=== PATIENT | male | born 1960 | race Caucasian/White ===

== ENCOUNTER 2025-05-01 21:20 | Inpatient (IN) | payer BC, SELFPAY ==
[2025-05-01 18:03] VITALS: BP 168/101
--- NOTE | 2025-05-01 18:34 | ED.GENMED ---
History of Present Illness
General
Chief Complaint: Abdominal Symptoms
Time Seen by Provider: 05/01/25 18:34
History of Present Illness
History of Present Illness:
FOCUSED PAST MEDICAL HISTORY
- High blood pressure, hyperlipidemia, diabetes
REVIEW OF OLD RECORDS
- No old records available for review in [facility]
Note:
CHIEF COMPLAINT(S)
Abdominal pain due to suspected hernia.
HISTORY OF PRESENT ILLNESS
The patient is a 64-year-old male presenting with abdominal pain. The patient reports a history of an umbilical hernia since , which recently became more symptomatic a week ago after lifting a heavy air conditioner unit. This incident led to a
loss of control over the unit with subsequent increased discomfort in the abdominal area.
The patient describes the pain as moderate, rating it a 5 out of 10. Initially, there was vomiting, but this resolved, and currently, the patient experiences diarrhea which is unusual for him. He reports being constipated recently and has been using
polyethylene glycol (MiraLAX) for relief.
No episodes of fever were noted, although chills occurred initially. The patient did not have a firm or distended abdomen upon examination, nor was there any irreducible hernia or severe vomiting, which would typically raise concern for an
incarcerated bowel. The patient still has his appendix, and no acute tenderness was noted except mild discomfort in specific areas.
The patient reports following up with a surgeon, Dr. Moe, with an upcoming appointment in two days.
PLAN
- A computed tomography (CT) scan of the abdomen will be performed to evaluate the hernia and assess for possible bowel involvement.
- Consider administration of ketorolac (Toradol) for pain relief as it is a non-sedating anti-inflammatory and pain reliever.
- The patient will have blood work completed before the CT scan.
- Follow-up with surgeon Mr. Moe in two days as previously scheduled.
PHYSICAL EXAM
Abdomen: Soft, non-distended, minimal tenderness in the area of concern without rebound or guarding more so on the right side. No signs of acute distress. There is a palpable fat-containing hernia in the umbilical region which is soft and nontender
- General: Well appearing in no distress
- HEENT: Moist oral mucosa
- Cardiovascular: No murmurs, normal heart rate, regular rhythm, No chest wall tenderness
- Pulmonary: No respiratory distress, breath sounds are clear and equal
- Neurologic: Excellent strength all extremities, no coordination deficits
- Psychiatric: Appropriate mental status, normal insight and judgement
- Extremities: Nontender, no edema, moves all extremities equally
- Skin: No rash, no lesions
PROBLEM LIST
- Acute abdominal pain possibly due to umbilical hernia exacerbation.
DIFFERENTIAL DIAGNOSIS
The Differential Diagnosis includes, in no particular order and is not limited to:
1. Umbilical hernia with possible incarceration
2. Intestinal obstruction
3. Gastroenteritis
4. Appendicitis
5. Hernia with bowel involvement
6. Muscular strain
7. Colitis
8. Gallbladder disease
9. Constipation-related pain
10. Diverticulitis
RADIOLOGY
- CT abdomen pelvis obtained
LABS
- White count 23.6, transaminases elevated, lipase 790, potassium 3.0
UPDATE
-SUMMARY OF ENCOUNTER
The patient, a 64-year-old male, presented to the emergency department with abdominal pain. A CT scan revealed severe colitis with perforation and abscess. His white blood cell count is significantly elevated at 23.6. The patient reported his worst
pain occurred two weeks ago following the awkward movement of an air conditioner. Despite the abnormal findings on CT and high white blood cell count, his physical examination showed no significant tenderness on the left side, no rebound, and only
mild tenderness on the right side. The decision was made to admit the patient to the hospital for further management of severe colitis with perforation and abscess.
DISPOSITION
Admit to the hospital for severe colitis with perforation and abscess.
ASSESSMENT
Severe colitis with perforation and abscess.
EMERGENCY TREATMENTS ADMINISTERED
The patient was given a dose of medication (specific medication uncertain).
MANAGEMENT OF THE PATIENTS CARE WAS DISCUSSED WITH
The patients care was discussed with a hospitalist and Dr. Ish Kenny, who agreed to evaluate the patient in the emergency department.
INDEPENDENT REVIEW OF LABS AND INTERPRETATION OF TESTS
- My independent review of the Complete Blood Count (CBC) shows leukocytosis with a white blood cell count of 23.6.
PLAN
Admit to the hospital for management of severe colitis with perforation and abscess under the care of Dr. Ish Kenny.
MEDICAL DECISION MAKING
- Complexity of Data Reviewed: Chronic conditions affecting care include the history of an umbilical hernia. Differential Diagnosis includes:
1. Umbilical hernia with possible incarceration
2. Intestinal obstruction
3. Gastroenteritis
4. Appendicitis
5. Hernia with bowel involvement
6. Muscular strain
7. Colitis
8. Gallbladder disease
9. Constipation-related pain
10. Diverticulitis
- Data:
Category 1: The patients CT and CBC results were reviewed.
Category 3: Discussion of management with Dr. Ish Kenny and a hospitalist.
-Risk: Admission to the hospital was deemed necessary due to the complexity, risk, and abnormal findings consistent with severe colitis with perforation and abscess.
DIAGNOSIS
1. Severe colitis with perforation and abscess (ICD-10: K57.20)
2. Leukocytosis (ICD-10: D72.829)
Phy Exam
Physical Exam
Physical Exam:
See HPI
Course
Orders/Labs/Results
Orders:
Orders
05/01/25 18:42
CT Abd/pelvis W Iv Cont Urgent
Comment:
Reason For Exam: periumb and RLQ pain
0.9% Sodium Chloride 1000 ml [Nss] 1,000 ml IV BOLUS
Ketorolac [Toradol] 15 mg IV NOW STA
05/01/25 18:45
Complete Blood Count/With Diff Urgent
Comprehensive Metabolic Panel Urgent
Lipase Urgent
Manual Differential Urgent
05/01/25 20:16
Piperacillin/Tazo 3.375 Gram [Zosyn] 3.375 gram in 50 ml IV NOW
05/01/25 20:35
Potassium Chloride [KCl] 40 meq 0.9% Sodium Chloride 250 ml [Nss] 250 ml IV NOW
Abnormal Lab Results
05/01/25
18:45
WBC 23.6 H 10^3/uL
(4.8-10.8)
RBC 3.57 L 10^6/uL
(4.70-6.10)
Hgb 11.6 L g/dL
(13.0-18.0)
Hct 34.3 L %
(39.0-52.0)
MCV 96.1 H fL
(80.0-94.0)
MCH 32.5 H pg
(27.0-31.0)
Plt Count 662 H 10^3/uL
(130-400)
Abs Neuts (Manual) 22.1 H 10^3/uL
(1.4-6.5)
Segmented Neutrophils 94 H %
(42-75)
Lymphocytes (Manual) 1 L %
(20-51)
Sodium 133 L mmol/L
(135-145)
Potassium 3.0 L mmol/L
(3.5-5.1)
Chloride 97 L mmol/L
(98-107)
BUN 22 H mg/dl
(9-20)
Glucose 198 H mg/dl
(70-99)
AST 262 H U/L
(17-59)
ALT 138 H U/L
(0-50)
Alkaline Phosphatase 136 H U/L
(38-126)
Albumin 3.4 L g/dl
(3.5-5.0)
Lipase 790 H U/L
(23-300)
05/01/25 18:45
05/01/25 18:45
Vital Signs
Initial and Last Documented VS:
Initial Vital Signs
Temp Pulse Resp BP Pulse Ox
37.1 C 104 17 168/101 99
05/01/25 18:03 05/01/25 18:03 05/01/25 18:03 05/01/25 18:03 05/01/25 18:03
Last Documented Vital Signs
Temp Pulse Resp BP Pulse Ox
37.1 C 94 17 183/97 97
05/01/25 18:03 05/01/25 18:45 05/01/25 18:03 05/01/25 18:37 05/01/25 18:45
*Pulse Oximetry
SaO2: 99
Oxygen Mode of Delivery: Room air
Patient hypoxic: no
*Critical Care Note
Total Time (30-74mins, 75-104mins- exclusive of procedures): Not Applicable
ED Attending Note
-
Portions of this chart may have been created with voice recognition software.� Occasional wrong word or��sound alike� substitutions may have occurred due to the inherent limitations of voice recognition software.
Discharge Plan
Departure
Patient Disposition: Admit
Date of Disposition: 05/01/25
Time of Disposition: 20:40
Presentation/result/management discussed w/ accepting MD/DO: Hospitalist
Discharge Problem:
Perforated abdominal viscus
Referrals:
Satnam Gaviria DO [Family Provider, Family Practice]
Interventions
Interventions:
*Risk Screen - Suicide Last Done: 05/01/25 18:06
*General Assessment Last Done: 05/01/25 18:06
*Neglect/Abuse Screening Last Done: 05/01/25 18:06
*ED COVID-19 Vaccine History Last Done: 05/01/25 18:06
*ED Influenza Vaccine History Last Done: 05/01/25 18:06
NB-Vrrzaz-Omlostnusj Assessment Last Done: 05/01/25 19:47
Discharge Date and Time
Print Language: LEBANESE
[2025-05-01 18:37] VITALS: BP 183/97
[2025-05-01] MEDS: NSS 1000 IV (18:48)
[2025-05-01 19:00] VITALS: BP 169/96
[2025-05-01 19:00] LABS: Hematocrit 34.3 % (39.0-52.0); Hemoglobin 11.6 g/dL (13.0-18.0); Mean Corp Hgb Conc. 33.8 g/dL (33.0-37.0); Mean Corpuscular Volume 96.1 fL (80.0-94.0); Platelet Count 662 10^3/uL (130-400); Red Cell Dist. Width 13.6 % (11.5-14.5)
[2025-05-01 19:12] LABS: ALT (SGPT) 138 U/L (0-50); AST (SGOT) 262 U/L (17-59); Albumin 3.4 g/dl (3.5-5.0); Alkaline Phosphatase 136 U/L (38-126); Blood Urea Nitrogen 22 mg/dl (9-20); Calcium 9.3 mg/dl (8.4-10.2); Carbon Dioxide 27 mmol/L (22-30); Chloride 97 mmol/L (98-107); Glucose 198 mg/dl (70-99); Lipase 790 U/L (23-300); Potassium 3.0 mmol/L (3.5-5.1); Sodium 133 mmol/L (135-145); Total Protein 6.3 g/dl (6.3-8.2); eGFR > 60.00
[2025-05-01 19:16] LABS: Absolute Neutrophils -Man Diff 22.1 10^3/uL (1.4-6.5)
[2025-05-01 19:17] LABS: Normal RBC Morphology Yes; Platelets Checked Yes; Total Cells Counted 100
[2025-05-01] MEDS: TORADOL 15 MG IV (19:21)
[2025-05-01] MEDS: ZOSYN 50 IV (20:28)
--- NOTE | 2025-05-01 20:51 | HPS.HSE ---
Family Physician
-
Family Physician: Satnam Gaviria
Chief Complaint
-
Abdominal pain
History of Present Illness
This is a 64-year-old male with past medical history significant for qia-wmoprqk-tyimemaly diabetes, hypertension, hyperlipidemia, chronic pain, anxiety presenting to the emergency department with abdominal pain.
Patient reports severe acute abdominal pain about 1 week ago with associated nausea and vomiting. This appeared to resolve up until today. However spouse reports that the patient has had decreased appetite and weight loss over this time. He has
not had any fevers or chills. He denies any diarrhea. He denies any melena or hematochezia.
Patient denies any prior GI issues including inflammatory bowel disease or recurrent diverticulitis. He denies any prior bowel surgery. He has no known history of ischemic cardiac disease. He has no prior episode of stroke. He has no recent
trauma.
On arrival in the emergency department he was hypertensive to 180/80 with a pulse of 94 and was satting 90% on room air. He was afebrile. Temp was 98.8. He has a leukocytosis to 23. Hemoglobin and platelets were normal. Sodium was 133 potassium
3.0 the rest of the electrolytes and BUN/creatinine were normal. He does have a elevation in AST to 262 ALT to 138. 230. Lipase was 790. CT of the abdomen pelvis showed severe right-sided colitis with perforated abscess formation and large
amounts of free air throughout the abdomen. Underlying cecal neoplasm cannot be excluded. The appendix was normal.
Medical History
Past Medical History
Past Medical History: Reports HTN, Hypercholesterolemia, NIDDM and Other (Anxiety, chronic pain)
Past Surgical History: Reports None
Social History
Tobacco: Non-smoker
Alcohol: Occasional
Drug: None
Personal:
Living: With Family
Family History
Family History: Not pertinent
Allergies / Home Medications
Allergies reflects when Allergies were last updated in [facility].
Home Medications with original date entered in [facility]
Allergy/Medication List:
Allergies
Allergy/AdvReac Type Severity Reaction Status Date / Time
No Known Allergies Allergy Unverified 05/01/25 18:04
Duloxetine 60 mg capsule, 60 mg p.o. daily
Losartan 50 mg tablet, 50 mg p.o. daily
Rosuvastatin 40 mg tablets, 40 mg p.o. at bedtime
Atenolol 25 mg tablets, 25 mg p.o. at bedtime
Gabapentin 300 mg tablet, 200 mg p.o. 3 times daily
Review of Systems
-
Constitutional: Reports No Symptoms
EENT: Reports No Symptoms
Respiratory: Reports No Symptoms
Cardiac: Reports No Symptoms
Abdomen/GI: Reports Abdominal Pain and Anorexia
: Reports No Symptoms
Musculoskeletal: Reports No Symptoms
Skin: Reports No Symptoms
Neurological: Reports No Symptoms
Endocrine: Reports No Symptoms
Hematologic/Lymphatic: Reports No Symptoms
Psych: Reports No Symptoms
Physical Exam
Vital Signs
Vital Signs
Temp Pulse Resp BP Pulse Ox
98.8 F 94 17 183/97 97
05/01/25 18:03 05/01/25 18:45 05/01/25 18:03 05/01/25 18:37 05/01/25 18:45
Physical Exam
General: Well Developed, Well Nourished and No Apparent Distress
HEENT: NormoCephalic, Moist mucous membranes and Atraumatic
Respiratory: Clear
Cardiac: S1/S2 and Regular Rhythm; No Murmur or Rub
GI: Soft, Non Distended, Normal Bowel Sounds and Tender (Right lower quadrant tenderness to deep palpation.); No Organomegaly
Rectal: Deferred by Provider
Musculoskeletal: No Clubbing, No Cyanosis and No Edema
Skin: No Rash
Neuro: AO x 3 and Nonfocal/grossly intact
Laboratory Results
-
05/01/25 18:45
05/01/25 18:45
Laboratory Results
Total Bilirubin 0.6 mg/dl (0.2-1.3) 05/01/25 18:45
AST 262 U/L (17-59) H 05/01/25 18:45
ALT 138 U/L (0-50) H 05/01/25 18:45
Alkaline Phosphatase 136 U/L (38-126) H 05/01/25 18:45
Lipase 790 U/L (23-300) H 05/01/25 18:45
Data Reviewed
-
CT Scan: Report Reviewed by me
Lab Data: Labs Reviewed by me
Old Records: Reviewed
Impression/Plan
-
IMPRESSION:
64-year-old with past medical history of xos-bevlgli-rfutsxqpi diabetes, hypertension, hyperlipidemia presenting to the emergency department with abdominal pain and anorexia found to have perforated abdominal viscus on the basis of colitis and
perforated abscess. Despite the CT scan patient's exam is fairly benign and his labs notable for leukocytosis mostly. He is afebrile hypertensive but otherwise stable and exam is only notable for tenderness to the right lower quadrant with deep
palpation without rebound or guarding. There is no obvious abdominal distention.
PLAN:
Colitis with perforated viscus
- Admit to ICU
-N.p.o.
-IV fluids with normal saline for now
-IV Zosyn
- blood cultures if febrile
-Colorectal surgery consulted and following, going to OR
Transaminitis with elevated lipase - drinks etoh, hyperlipidemia. No billiary dilation or stone
- trend lfts
- check lipid panel
Diabetes
-Hold metformin
-Sliding scale insulin
Hypertension
-For now can continue atenolol and losartan with hold parameters
DVT prophylaxis�Lovenox subcu
CODE STATUS�full code
[2025-05-01] MEDS: KCL 270 MEQ IV (21:08)
--- NOTE | 2025-05-01 22:20 | CON.CRS ---
Consultation
-
Date/Time Consultation Performed: 05/01/25
Performing Provider: Ish Kenny MD
Reason for Consultation: perforated colitis
Medical History
-
History of Present Illness:
64-year-old male with PMH of HTN, HLD, prediabetes, BRANDI, rheumatoid arthritis (not on any maintenance therapy, gets routine joint injections) who presents with 1.5 weeks of abdominal pain. He first noted the abdominal pain after lifting an air
conditioner. He thought he felt a snap or a pop in his abdomen, unsure where. He then felt abdominal pain more near the bellybutton. He has a congenital umbilical hernia and he thought it was related to this. However, about a week ago, he had a
few episodes of vomiting with decreased p.o. intake. He denies any fevers, but has had episodes of sweating. He has not been able to eat over the last several days, but he has been tolerating fluids. He denies any chest pain, shortness of breath,
urinary symptoms or hematochezia. He was constipated, but took MiraLAX and developed diarrhea over the last day or so. His spouse told him to come to the ED because he has not been able to eat.
In the ED, his WBC was 23.[address] scan showed pneumoperitoneum associated with right sided colitis, concerning for perforated colon.
Past Medical History
Past Medical History: Other (As above)
Past Surgical History: Other (Denies)
Social History
Tobacco: Non-Smoker
Alcohol: Daily
Drug: Marijuana (Occasional)
Personal:
Living: With Family
Employment: Employed (Was employed as a starr)
Family History
Family History: Reviewed & Not Pertinent (Denies a family history of CRC)
Allergies / Home Medications
Allergy/AdvReac Type Severity Reaction Status Date / Time
No Known Allergies Allergy Unverified 05/01/25 18:04
Review of Systems
-
A 10 point review of systems was completed, and was negative except as per HPI.
Physical Exam
Vital Signs
Temp 98.8 F 05/01/25 18:03
Pulse 90 05/01/25 19:00
Resp Rate 17 05/01/25 18:03
Blood pressure 169/96 05/01/25 19:00
SaO2 94 05/01/25 19:15
Lab Results / Allergies
05/01/25 18:45
05/01/25 18:45
WBC 23.6 10^3/uL (4.8-10.8) H 05/01/25 18:45
Hgb 11.6 g/dL (13.0-18.0) L 05/01/25 18:45
Hct 34.3 % (39.0-52.0) L 05/01/25 18:45
Plt Count 662 10^3/uL (130-400) H 05/01/25 18:45
Allergy/AdvReac Type Severity Reaction Status Date / Time
No Known Allergies Allergy Unverified 05/01/25 18:04
Physical Exam
General: Well Developed, Well Nourished and No Apparent Distress
HEENT: Normocephalic and Atraumatic
Respiratory: Non Labored Respirations
Cardiac: S1/S2
GI: Soft, Tender (Minimally tender in the right hemiabdomen with deep palpation, no rebound or guarding; palpable umbilical hernia) and Distended (Mildly distended)
Skin: Warm and Dry
Neuro: AO x 3
Data Reviewed
-
CT Scan: Image Personally Visualized and interpreted, Discussed with Physician, Discussed with Patient and Discussed with Family
Labs: Labs Reviewed by me, Discussed with Patient and Discussed with Family
Assessment / Plan
-
64-year-old male with PMH of HTN, HLD, prediabetes, BRANDI, rheumatoid arthritis (not on any maintenance therapy, gets routine joint injections) who presents with 1.5 weeks of abdominal pain after lifting an air conditioner, associated with 2-3
episodes of vomiting 1 week ago as well as inability to tolerate solid foods over the last several days. He has never had a colonoscopy. In the ED, his WBC was 23.[address] scan showed pneumoperitoneum associated with right sided colitis,
concerning for perforated colon.
�Pneumoperitoneum associated with right sided colitis, concerning for perforation
�Discussed the pathophysiology of pneumoperitoneum; most likely, this represents perforation of the right colon as this area is thickened; possible etiologies include inflammatory, infectious, ischemic and neoplastic; it is possible that the
perforation came from another area of the GI tract such as the left-sided colon or the upper GI track; as he still has a moderate amount of pneumoperitoneum, it is difficult to know if the perforation was a week ago or more recent; either way, it is
clear that his body is not isolating the perforation, which, if left untreated, leaves him at risk for further clinical decline and possible abdominal sepsis; therefore, I recommend prompt operative intervention both to identify the location of the
perforation and to treat it; most likely, he will require a bowel resection and ostomy; I reviewed the risks involved with the surgery, including, but not limited to, bleeding, infection, damage to nearby structures, recurrent hernia, anastomotic
leak/stricture if one is created, complications associated with ostomy (i.e.�hernia, prolapse, stenosis, retraction, need for revision surgery, poor pouching, high output, skin irritation; the patient and patient spouse understood well, all
questions were answered and they were agreeable to proceeding with surgery
� Continue n.p.o. with IVF; will plan to place NGT during surgery
�Will start IV Zosyn
�Will send type and screen and coags
� Appreciate hospitalist
[2025-05-02] VITALS (15 sets, daily range): BP systolic 0–187; BP diastolic 71–98; BMI 26.2; BMI 26.9
--- NOTE | 2025-05-02 04:00 | W.IMMPOSTOP ---
Addendum entered and electronically signed by Ish Kenny MD 05/02/25 08:29:
patient's spouse was update via phone at around 4:15am
Original Note:
Surgical Immed Post Op Note
-
Primary Surgeon: Ish Kenny MD
Assisting Surgeon: Diogo Sellers MD
Pre-op Diagnosis: Perforated ascending colitis
Post-op Diagnosis: Perforated ascending colitis, perforated diverticulitis
Procedure Performed: Exploratory laparotomy, right hemicolectomy, sigmoidectomy, drainage of intra-abdominal abscess x 2, lysis of adhesions, abdominal washout, flexible sigmoidoscopy, TAP block, umbilical hernia repair, ventral hernia repair
Anesthesia Type: General
Specimen / Cultures: Abdominal fluid cultures, ascending colon, sigmoid colon, umbilical hernia sac
Estimated Blood Loss: 75
UOP: 450 mL
IVF: 2.2 L
Complications: None
Operative Findings: Performed midline laparotomy and encountered two midline hernias, umbilical and supraumbilical, both with incarcerated preperitoneal fat; encountered right gutter abscess, sent fluid cultures; encountered abscess along the right
pelvic brim adjacent to the sigmoid and appendix; entered the lesser sac and mobilized to the right colon from the mid transverse; palpated NGT and confirmed appropriate placement within the stomach; thick rind along the ascending colon; cecum
curled up and adherent to the ascending colon; palpable thickness in the proximal ascending colon concerning for mass versus segmental thickening; performed flexible sigmoidoscopy to ensure no perforation along the rectosigmoid colon due to the
abscess immediately adjacent to it; identified bubbling, confirming perforation; intraluminally, the rectum and rectosigmoid mucosa appeared healthy; there was purulent exudate within the sigmoid colon and perforation was visualized; called my
partner, Dr. Sellers, for assistance; proceeded with right hemicolectomy with high ligation of the ileocolic pedicle; mobilized the sigmoid, which was redundant; identified the left ureter and kept the safe; divided proximally on the mid sigmoid
colon on healthy colon; scored the peritoneum and mobilized the rectosigmoid; divided the mesentery with the LigaSure; divided at the rectosigmoid junction with the green load of the contour stapler; wash the abdomen with 5 L of saline; proceeded
with [id number] antiperistaltic stapled anastomosis from terminal ileum to mid transverse colon; proceeded with EEA stapled anastomosis from mid sigmoid to rectosigmoid; mobilized proximal rectum in order to accommodate the EEA stapler; donuts
intact x 2, negative leak test, anastomosis intact on flexible sigmoidoscopy; operative field was hemostatic; placed 19 Mexican Jack drain through the RLQ into the pelvis; resected umbilical hernia sac and cleaned up fascial edges; closed with 0 PDS
and placed Seprafilm; tacked umbilical stalk to midline with 2-0 Vicryl; closed with intermittent narendra and Telfa fercho; NGT and Jarvis in place
[2025-05-02 04:19] LABS: Glucose - Point of Care 282 mg/dl (70-99)
--- NOTE | 2025-05-02 04:22 | OR.RPT ---
Operative Report
Operative Report
DATE OF OPERATION: 05/02/2025
SURGEON: Ish Kenny MD
PREOPERATIVE DIAGNOSIS: Perforated ascending colitis
POSTOPERATIVE DIAGNOSIS: Perforated ascending colitis, perforated sigmoid diverticulitis
OPERATION: Exploratory laparotomy, drainage of intra-abdominal abscess x 2, lysis of adhesions, right hemicolectomy, sigmoidectomy, abdominal washout, flexible sigmoidoscopy, TAP block, umbilical hernia repair, ventral hernia repair
ASSISTANTS:
1. Diogo Sellers MD
ANESTHESIA: General
ESTIMATED BLOOD LOSS: 75 mL
UOP: 450 mL
IVF: 2.2 L
FINDINGS:
1. 1 cm umbilical hernia and 1 cm supraumbilical hernia with incarcerated preperitoneal fat
2. Intra-abdominal abscess along the right gutter as well as right pelvic brim; cultures obtained
3. Thickened and inflamed ascending colon with palpable mass-like nodularity intraluminally
4. Performed flexible sigmoidoscopy to ensure no perforation from the sigmoid; however, encountered bubbling from the mid sigmoid colon; visualized perforation intraluminally associated with purulent exudate on the mucosa; rectosigmoid and rectal
mucosa appeared healthy
5. Performed [id number] antiperistaltic stapled ileocolic anastomosis
6. Performed EEA stapled colorectal anastomosis; negative leak test, donuts intact x 2, anastomosis intact on flexible sigmoidoscopy
SPECIMENS:
1. Abdominal fluid cultures
2. Right colon
3. Sigmoid colon
4. Hernia sac
DRAINS: RLQ 19 American Jack into the pelvis
COMPLICATIONS: No immediate complications.
INDICATIONS: The patient is a 64-year-old male who presented with 1.5-week history of abdominal pain associated with decreased appetite and constipation. He was found to have pneumoperitoneum associated with ascending colitis. His WBC was 23.6.
Therefore, surgery was recommended. The operation was discussed with the patient in detail, including risks, benefits and alternatives. My plan is to explore the abdomen, identify the site of perforation and remove the segment of bowel, likely the
ascending colon. I will assess if a primary anastomosis is reasonable or if an ostomy would be safer. Risks described included, but are not limited to, bleeding, infection, anastomotic leak or stenosis (if anastomosis created), ureteral injury,
bowel or solid organ injury, possibility of encountering inflammatory bowel disease or cancer, risks associated with a stoma if created (ie- skin irritation, ischemia, retraction, prolapse and parastomal hernia) and anesthetic risks. The patient
understood and agreed to proceed.
PROCEDURE IN DETAIL: In the pre-operative area, I marked the patient after assessing the patient in supine and sitting positions. The patient was taken to the operating room and placed on the operating table in supine position. Sequential
compression devices were placed bilaterally. General anesthesia was induced and the patient was intubated without complication. The patient was placed in lithotomy position with both arms secured to the armboards in extended position. Jarvis
catheter was placed with sterile technique. The abdomen was shaved, prepped and draped in a sterile fashion. A time-out was performed verifying the correct patient, procedure, operative site, positioning, and special equipment. Anesthesia placed a
nasogastric tube. IV Ancef and Flagyl were given preincision. A marking pen was used to saroj out the midline.
Using a 15 blade scalpel, a midline incision was made from the upper epigastric region above the umbilicus and extended caudally to a few centimeters above the pubic symphysis. This was taken down to the level of the fascia with Bovie
electrocautery and hemostasis was assured. The linea alba was divided carefully with Bovie electrocautery. Then 2 Kellys were used to grasp and elevate the peritoneum, which was sharply divided with Metzenbaum scissors, ensuring no peritoneal
organs were in the vicinity. Abdominal entry was confirmed. During this dissection, I encountered 2 small ventral hernias, one at the umbilicus and the other just above the umbilicus. Both were about 1 cm in size with incarcerated preperitoneal
fat. I reduced or excised the preperitoneal fat and took my fascial incision through the hernia defects. I extended the fascial incision to the length of my skin incision. I explored the abdomen. There was purulent fluid coming from the right
gutter of the ascending colon. I obtained anaerobic and aerobic cultures from this fluid. A large Biju wound protector was placed. The abdomen was explored. There was a significant amount of fibrinous rind along the anterior surface of the
ascending colon. The cecum was not particularly dilated, but was curled back onto the ascending colon and adherent. I was able to palpate thickness within the ascending colon. It was unclear if this thickness represented colitis or a mass.
However, it was clear that this segment of colon was not healthy. The mesentery was edematous as well. I was not able to identify an obvious perforation, but due to the right gutter abscess as well as the pathology noted within the ascending
colon, this seemed most likely the site. I identified an additional abscess along the right pelvic brim. The sigmoid colon was redundant and did loop over to this region. This right pelvic brim abscess abutted the cecum, appendix and sigmoid
colon. The appendix itself appeared healthy and had no evidence of perforation. I suctioned this abscess. I bluntly mobilized the cecum, appendix, small bowel and sigmoid away from this area. Externally, the sigmoid colon did not appear
unhealthy or thickened. However, there was a rind along the sigmoid colon where the pelvic brim abscess was abutting it. The small bowel was not particularly dilated and there were scattered areas of fibrinous rind. The Bookwalter was set up with
4 points of retractions.
I proceeded with the plan to perform right hemicolectomy. I began mobilization of the right colon. I retracted the ascending colon medially and released the lateral attachments. I mobilized the elbow of the ascending colon leading into the cecum
away from the pelvic brim. I identified the right ureter and kept this safe from my dissection. I freed up an adhesion from the right pelvic brim to the small bowel. I took this dissection up to the hepatic flexure. Due to the thickening of the
ascending colon and retroperitoneal fibrosis, this portion of the colon was difficult to dissect. I elevated the omentum at the midportion of the transverse colon and divided the gastrocolic ligament. I entered the lesser sac and confirmed this by
visualizing the posterior wall of the stomach. I palpated the NG tube within the stomach, confirming placement. I divided the gastrocolic ligament towards the hepatic flexure. Again, due to the inflammatory reaction of the omentum and mesentery,
this portion of the dissection was difficult. I was able to connect my distal mobilization to the proximal mobilization across the attachments at the hepatic flexure. I identified the sweep of the duodenum and kept it safe from my dissection.
With the ascending colon completely mobilized, I was able to palpate the thickness within the mid-ascending colon. It appeared to be focal thickening, somewhat concerning for a mass. But due to the inflammatory reaction and dense adhesions between
the ascending colon and cecum, this was hard to be sure of without significant lysis of adhesions, which were dense.
As the sigmoid colon was abutting the pelvic brim abscess, I proceeded with flexible sigmoidoscopy to confirm no evidence of perforation within the sigmoid colon. I filled the abdomen with saline. I advanced the lubricated sigmoidoscope
transanally and insufflated. Immediately, there was bubbling noted from the mid to distal sigmoid colon. I advanced the sigmoidoscope under direct visualization up to the mid sigmoid colon. There was some solid stool precluding complete
visualization. However, I was able to visualize a good portion of the sigmoid mucosa, which appeared irritated and coated in purulent exudate. Moreover, I identified a punctate hole within the distal sigmoid colon that was most consistent with the
site of perforation. On withdrawal, the mucosa of the rectosigmoid and rectum appeared healthy. Due to the complexity of the case at this point, I called my partner, Dr. Sellers, to help assist. On his arrival, I discussed the case with him,
including the colitis of the ascending colon seen on CT associated with abscess, as well as my findings within the sigmoid colon. We both agreed that the best option moving forward would be to perform a right hemicolectomy in case there is
malignancy, as well as sigmoidectomy. After confirming adequate mobilization of the ascending and proximal transverse colon, I created holes in the mesentery at the terminal ileum and proximal transverse colon. I stapled and divided at these
points with the purple load of the LEON 80 stapler. I divided the mesentery with the LigaSure device. I palpated the ileocolic pedicle and divided this in a high-ligation fashion using the LigaSure device. The right colon was passed off for
specimen.
The patient was placed in Trendelenburg position with the left side up. The sigmoid colon was mobilized from a lateral to medial dissection. The left ureter was easily identified and confirmed with vermiculation. This was kept safe from my
dissection. I completed the proximal mobilization up to the distal descending colon. I selected a point on the mid-sigmoid colon where the bowel was clearly healthy. I created a hole in the mesentery and divided the bowel with the purple load of
the LEON 80 stapler. I return to the rectosigmoid junction. I scored the peritoneum along the right and left pelvic brim to mobilize the rectosigmoid. Using electrocautery, I entered the presacral space and dissected posteriorly to the
rectosigmoid and connected this to the contralateral side taking care to avoid injury to the hypogastric nerves. I created a hole in the mesorectum at the rectosigmoid junction. I divided across the rectosigmoid junction with a green load of the
contour stapler. I serially ligated the mesentery, staying close to the mesenteric border. The sigmoid colon was passed off for specimen.
The abdomen was washed with 5 L of warm saline and the effluent was clear. I considered the options, including primary anastomosis with or without diverting loop ileostomy, primary ileocolic anastomosis with end colostomy or end ileostomy with
mucous fistula. The patient was hemodynamically stable. He did not appear malnourished and his presenting albumin was 3.4. Therefore, I elected to proceed with primary anastomosis x 2. For the ileocolic anastomosis, I created a [id number]
antiperistaltic stapled anastomosis from terminal ileum to the mid-transverse colon. I placed blue towels to excluded the operative field. I cut the antimesenteric corners of the staple line off. I passed the LEON 80mm stapler with the purple
load. After confirming alignment of the antimesenteric portion of each limb, I stapled and divided. I lined up the common ileocolotomy with Allis clamps. I stapled this closed with the TA60 stapler blue load. The staple line was hemostatic. I
placed a crotch stitch of 2-0 Vicryl. After the anastomosis, both limbs of the bowel remained well-perfused without any evidence of ischemia.
For the colorectal anastomosis, I began by preparing my proximal limb. Using electrocautery, I excised the staple line. I ran a pursestring stitch of 2-0 Prolene in a [place] fashion and tightened this down around the anvil. I cleaned up the
staple line of the anvil from intervening peritoneum, fat and diverticula. I placed EEA sizers up the rectum to ensure adequate diameter and mobilization. However, I was unable to pass up the EEA sizer to the staple line due to the restricted
mobility of the mid rectum. Therefore, I dissected further along the presacral space down beyond the mid rectum using electrocautery. I freed up the proximal rectum bilaterally, but I remained above the anterior peritoneal reflection. I tested
the rectum again with EEA sizers and they passed up easily. I passed the EEA stapler up to the staple line and it seated nicely. The pin was extended. The anvil was mated to the pin. Ensuring there was no tension or twist of the mesentery, the
EEA stapler was closed for greater than 1 minute and then fired. The stapler was meticulously removed. The donuts were intact x 2. The pelvis was filled with warm saline. The flexible sigmoidoscope was passed transanally and the colorectum was
insufflated. There was no bubbling noted from the anastomosis. The anastomosis was endoscopically visualized. It was intact and was not bleeding. The colorectum was desufflated and the sigmoidoscope was removed.
The operative field was closely inspected and was hemostatic. The limbs of each anastomosis were visualized and remained well-perfused. I placed a 19 American Jack drain through the right lower quadrant and fed the intra-abdominal portion into the
pelvis, below the anastomosis. This was secured to the skin using 3-0 nylon. I performed a TAP block using 30 mL of 0.25% Marcaine with epinephrine mixed with 0.3 mg of Decadron. I injected 15 mL bilaterally in the transversus abdominis plane. I
cleaned up the fascia and disconnected the umbilical stalk. I resected the hernia sacs. The omentum was brought over the midline small bowel and the midline fascia was closed with a running #1 PDS, starting at the corners and meeting in the middle.
While closing, Seprafilm was placed under the fascial incision. The subcutaneous space was irrigated. The umbilical stalk was tacked to the midline with 2-0 Vicryl. The skin was injected with the remaining 30 mL of local. The skin was closed
with widely gapped narendra and Telfa fercho and, ultimately, an Aquacel dressing was placed.
At this point, the procedure was complete. The patient was awoken and extubated without complication. All needle, sponge and instrument counts were reported as correct. The patient tolerated the procedure well and was transferred to the recovery
room in stable condition with the nasogastric tube and Jarvis in place.
Of note, Diogo Sellers MD, assistant product manager, was necessary during this procedure for traction, countertraction, and exploratory purposes. I was present for the entire duration of the case.
DICTATED BY: Ish Kenny MD
[2025-05-02] MEDS: NOVOLOG vial 4 UNITS SC (04:25)
[2025-05-02 04:36] LABS: INR 1.24; PT 15.9 Sec (11.4-14.6)
[2025-05-02 04:37] LABS: APTT 31.6 Sec (23.4-35.0)
[2025-05-02 04:41] LABS: Hematocrit 31.5 % (39.0-52.0); Hemoglobin 10.5 g/dL (13.0-18.0); Mean Corp Hgb Conc. 33.3 g/dL (33.0-37.0); Mean Corpuscular Volume 94.3 fL (80.0-94.0); Platelet Count 716 10^3/uL (130-400); Red Cell Dist. Width 13.9 % (11.5-14.5)
[2025-05-02 04:52] LABS: ALT (SGPT) 125 U/L (0-50); AST (SGOT) 160 U/L (17-59); Albumin 2.9 g/dl (3.5-5.0); Alkaline Phosphatase 117 U/L (38-126); Blood Urea Nitrogen 21 mg/dl (9-20); Calcium 7.8 mg/dl (8.4-10.2); Carbon Dioxide 22 mmol/L (22-30); Chloride 101 mmol/L (98-107); Glucose 281 mg/dl (70-99); Lipase 302 U/L (23-300); Magnesium 1.6 mg/dl (1.6-2.3); Potassium 4.3 mmol/L (3.5-5.1); Sodium 133 mmol/L (135-145); Total Protein 5.6 g/dl (6.3-8.2); eGFR > 60.00
[2025-05-02] MEDS: OFIRMEV IV (05:04)
[2025-05-02] MEDS: NSS 1000 IV ×2 (05:05→13:03)
[2025-05-02] MEDS: ZOSYN 50 IV ×4 (05:21→21:40)
[2025-05-02] MEDS: TORADOL 15 MG IV ×4 (05:22→22:39)
[2025-05-02 05:36] LABS: Nucleated Red Blood Cells % 0 % (-)
[2025-05-02 05:52] LABS: Glucose - Point of Care 265 mg/dl (70-99)
[2025-05-02] MEDS: NOVOLOG FLEXPEN-LOW RESISTANCE 3 UNITS SC (06:15)
--- NOTE | 2025-05-02 08:17 | W.PN.HOSP.TC ---
Today's Communication/Plan
-
Continue antibiotics
N.p.o.
IV fluids
Hemoglobin A1c
Update home medication list
Assessment / Plan
Assessment / Plan
Gen-awake, alert, moderate distress due to pain
HEENT-NC, AT, anicteric, clear oral mm
Neck-supple
CV-reg, no M, +S1/S2
Lungs-clear B/L
Abd-soft, NT, incision intact
Ext-no edema
Musculoskeletal-no cyanosis, clubbing
Skin-warm and dry
Neuro-grossly non-focal
Psych-calm, cooperative
Jarvis catheter
Sepsis due to perforated colon/abscess -hemodynamically stable. Sepsis present on admission, characterized by leukocytosis and tachycardia. Afebrile. Continue IV Zosyn.
Admission CT scan reviewed showing large irregular pericolonic abscess superolateral to the mid ascending colon extending along the inferior tip of the right hepatic lobe and gallbladder body, 6.7 x 7.5 x 6.0 cm. Marked surrounding inflammatory
change and large amounts of free intraperitoneal gas in the region, significant amount of free air located on of the right hemidiaphragm. Additional pericolonic abscess in the inferior right paracolic gutter extending from the cecum into the
anterior right pelvis, 9.3 x 2.9 x 13.5 cm. Normal appendix. Diverticulosis noted.
Stable after exploratory laparotomy, right hemicolectomy, sigmoidectomy, drainage of intra-abdominal abscess x 2, WILMA, abdominal washout, flexible sigmoidoscopy, umbilical and ventral hernia repair, 05/02/2025.
Continue n.p.o., NG tube. Ice chips okay. Continue IV fluids.
No evidence of pancreatitis despite mild lipase elevation.
Hyponatremia -stable at 133.
Hypokalemia -resolved.
Elevated transaminases -possibly related to sepsis. Trending down. Hold rosuvastatin.
Macrocytic anemia -hemoglobin 10.5 this morning, baseline hemoglobin unknown. Will send anemia labs.
DM2 with hyperglycemia -hemoglobin A1c pending. Hold metformin. Continue low resistance NovoLog scale. Glucose 281 this morning.
Essential hypertension -blood pressure currently elevated related to pain.
Rheumatoid arthritis -not on immunosuppression or anti-inflammatory meds.
Generalized anxiety disorder
Alcohol use disorder -patient states last drink was 1-1/2 weeks ago. Was drinking 12 pack of beer daily. He states he wants to quit altogether. Low risk for alcohol withdrawal at this point in time.
Full code
Please update home medication list.
Patient's updated at the bedside.
Anticipated Discharge: > 48 hours
Subjective/Interval History
-
Date of Service: May 02, 2025
Patient seen and examined, complaining of abdominal pain.
Objective Data
-
Labs:
Laboratory Results
05/02/25 05/02/25 05/02/25
04:10 04:10 04:10
WBC Cancelled 23.2 H
Hgb Cancelled 10.5 L
Hct Cancelled
Plt Count
PT
INR
APTT
Sodium
Potassium
Chloride
Carbon Dioxide
BUN
Creatinine
Glucose
Calcium
Total Bilirubin
AST
ALT
Alkaline Phosphatase
05/02/25 05/02/25 05/02/25
04:10 04:10 04:10
WBC
Hgb
Hct 31.5 L
Plt Count Cancelled 716 H
PT 15.9 H
INR 1.24
APTT 31.6
Sodium 133 L Cancelled
Potassium
Chloride
Carbon Dioxide
BUN
Creatinine
Glucose
Calcium
Total Bilirubin
AST
ALT
Alkaline Phosphatase
05/02/25 05/02/25 05/02/25
04:10 04:10 04:10
WBC
Hgb
Hct
Plt Count
PT
INR
APTT
Sodium Cancelled
Potassium 4.3 D Cancelled Cancelled
Chloride 101
Carbon Dioxide
BUN
Creatinine
Glucose
Calcium
Total Bilirubin
AST
ALT
Alkaline Phosphatase
05/02/25 05/02/25 05/02/25
04:10 04:10 04:10
WBC
Hgb
Hct
Plt Count
PT
INR
APTT
Sodium
Potassium
Chloride Cancelled Cancelled
Carbon Dioxide 22 Cancelled
BUN
Creatinine
Glucose
Calcium
Total Bilirubin
AST
ALT
Alkaline Phosphatase
05/02/25 05/02/25 05/02/25
04:10 04:10 04:10
WBC
Hgb
Hct
Plt Count
PT
INR
APTT
Sodium
Potassium
Chloride
Carbon Dioxide Cancelled
BUN 21 H Cancelled Cancelled
Creatinine 0.8
Glucose
Calcium
Total Bilirubin
AST
ALT
Alkaline Phosphatase
05/02/25 05/02/25 05/02/25
04:10 04:10 04:10
WBC
Hgb
Hct
Plt Count
PT
INR
APTT
Sodium
Potassium
Chloride
Carbon Dioxide
BUN
Creatinine Cancelled Cancelled
Glucose 281 H Cancelled
Calcium
Total Bilirubin
AST
ALT
Alkaline Phosphatase
05/02/25 05/02/25 05/02/25
04:10 04:10 04:10
WBC
Hgb
Hct
Plt Count
PT
INR
APTT
Sodium
Potassium
Chloride
Carbon Dioxide
BUN
Creatinine
Glucose Cancelled
Calcium 7.8 L D Cancelled Cancelled
Total Bilirubin 0.6
AST 160 H
ALT 125 H
Alkaline Phosphatase 117
Vital Signs:
Vital Signs
Temp Pulse Resp BP Pulse Ox
98.8 F 92 10 161/71 92
05/02/25 05:22 05/02/25 04:45 05/02/25 04:45 05/02/25 04:45 05/02/25 05:33
I&O
05/01/25 05/02/25 05/03/25
06:59 06:59 06:59
Intake Total 0 / 0
Output Total 175 / 175
Balance -175 / -175
Review of Systems
-
History Source: Patient
All other systems: Reviewed and negative
[2025-05-02] MEDS: DILAUDID 0.5 MG IV ×2 (08:29→21:40)
[2025-05-02 08:39] LABS: Reticulocyte Count 2.1 % (0.4-2.8)
[2025-05-02 09:22] LABS: Iron 53 ug/dl (49-181); Total Iron Binding Capacity 277 ug/dl (261-462)
[2025-05-02] MEDS: OFIRMEV 100 IV ×3 (09:43→22:54)
[2025-05-02 10:40] LABS: Glycohemoglobin (HgbA1c) 7.3 % (4.0-5.6)
[2025-05-02] MEDS: RELISTOR 12 MG SC (11:29)
[2025-05-02 12:56] LABS: Glucose - Point of Care 189 mg/dl (70-99)
[2025-05-02] MEDS: VALIUM INJECTION 2 MG IV ×2 (13:09→19:39)
[2025-05-02] MEDS: NOVOLOG FLEXPEN-LOW RESISTANCE 1 UNITS SC ×2 (13:09→18:17)
[2025-05-02 13:24] LABS: Ferritin 515.0 ng/ml (17.9-464.0)
[2025-05-02 13:38] LABS: Vitamin B12 645 pg/ml (239-931)
[2025-05-02 14:06] LABS: Folate 9.7 ng/ml (2.76-20)
--- NOTE | 2025-05-02 14:43 | W.PN.UPDATE ---
Update Note
Progress Note Update
Called to the patient's bedside by nursing. Midline incision was oozing. Removed dressing, held pressure at bedside for about 10 minutes. Bleeding subsided. Replaced with 4x4 gauze and tape. No further bleeding noted. Some fercho were removed. If
continues to bleed, hold pressure and let provider know if it does not stop. Discussed surgery with and patient at bedside.
--- NOTE | 2025-05-02 14:45 | PTCARENOTE ---
colorectal at bedside pt's dressing bleeding through aquacel dressing. pressure and dressing applied. instructions to apply gauze dressing and pressure if bleeding reoccurs and contact surgical team if bleeding is then persistent. NG continues LWIS,
dark brown output. HTN attending aware feels r/t pain.
[2025-05-02] MEDS: ANESTHETIC LOZENGE 1 LOZENGE PO ×2 (15:06→19:50)
--- NOTE | 2025-05-02 15:51 | CM ---
Initial Assessment Completed By Hugo. Patient lives Independently with his in a 1 Story Rancher. No DME, No PT/OT, No VN or Inpatient Rehab.
PCP: Dr. Satnam Gaviria
Pharmacy: [facility] on [facility] [address] [facility]
Patient has transportation home when ready. PLAN: Anticipate Home No Needs Vs. VN
[2025-05-02 18:17] LABS: Glucose - Point of Care 189 mg/dl (70-99)
[2025-05-02] MEDS: DILAUDID 0.25 MG IV (18:17)
--- NOTE | 2025-05-02 21:39 | PTCARENOTE ---
medicated patient with prn Valium. Called verbal report to OMAR Urbano on . Patient transferred with all belongings and without issue.
--- NOTE | 2025-05-02 22:00 | PTCARENOTE ---
Pt received from [facility] @2114. Large amount of serosangiuneous drainage noted on middle adbominal dressing. NG Tube draining to continuous suction. R RYDER dressing c/d/i. Pt reports 03/28 pain. Medications adminsitered. Knee high teds/scds on pt. Call
rock within reach. Care ognoing.
[2025-05-02] MEDS: TRANDATE 10 MG IV (22:39)
[2025-05-02 23:59] LABS: Glucose - Point of Care 178 mg/dl (70-99)
[2025-05-03] VITALS (16 sets, daily range): BP systolic 149–188; BP diastolic 75–99; BMI 26.3
[2025-05-03] MEDS: NOVOLOG FLEXPEN-LOW RESISTANCE 1 UNITS SC (00:02)
[2025-05-03] MEDS: CHLORASEPTIC/SORE THROAT SPRAY 1 SPRAY PO ×4 (00:06→11:15)
[2025-05-03] MEDS: NSS 1000 IV ×2 (00:10→07:59)
[2025-05-03] MEDS: ZOSYN 50 IV ×4 (03:45→23:36)
[2025-05-03] MEDS: TORADOL 15 MG IV (03:46)
[2025-05-03 05:46] LABS: Glucose - Point of Care 214 mg/dl (70-99)
[2025-05-03] MEDS: NOVOLOG FLEXPEN-LOW RESISTANCE 2 UNITS SC (05:47)
[2025-05-03] MEDS: ANESTHETIC LOZENGE 1 LOZENGE PO ×2 (07:55→11:15)
[2025-05-03] MEDS: RELISTOR 12 MG SC (07:57)
[2025-05-03] MEDS: TRANDATE 10 MG IV ×2 (08:25→21:15)
--- NOTE | 2025-05-03 08:53 | W.PN.HOSP.TC ---
Addendum entered and electronically signed by Kory Hernandez DO 05/03/25 11:08:
Acute blood loss anemia -postoperative GI bleed suspected. NSAIDs discontinued. Was getting Toradol [id number].
Tranexamic acid per surgical service.
Hemodynamically stable.
Hemoglobin down to 7.8 this morning, admission hemoglobin 11.6.
Passing bloody/burgundy stool.
Placed 2 large-bore peripheral IVs. Discussed with nursing.
Transfer to IMU. Discussed with colorectal surgery.
Transfuse 1 unit of blood now. Patient and consented.
Monitor hemoglobin closely.
Original Note:
Today's Communication/Plan
-
Lower rate of IV fluids
Add Lantus
NG tube clamping trial
Assessment / Plan
Assessment / Plan
Gen-awake, alert, NAD.
HEENT-NC, AT, anicteric, clear oral mm, NG tube
Neck-supple
CV-reg, no M, +S1/S2
Lungs-clear B/L
Abd-soft, NT, incision intact
Ext-no edema
Musculoskeletal-no cyanosis, clubbing
Skin-warm and dry
Neuro-grossly non-focal
Psych-calm, cooperative
Jarvis catheter
Sepsis due to perforated colon/abscess -hemodynamically stable. Sepsis present on admission, characterized by leukocytosis and tachycardia. Afebrile. Continue IV Zosyn.
Admission CT scan reviewed showing large irregular pericolonic abscess superolateral to the mid ascending colon extending along the inferior tip of the right hepatic lobe and gallbladder body, 6.7 x 7.5 x 6.0 cm. Marked surrounding inflammatory
change and large amounts of free intraperitoneal gas in the region, significant amount of free air located on of the right hemidiaphragm. Additional pericolonic abscess in the inferior right paracolic gutter extending from the cecum into the
anterior right pelvis, 9.3 x 2.9 x 13.5 cm. Normal appendix. Diverticulosis noted.
Stable after exploratory laparotomy, right hemicolectomy, sigmoidectomy, drainage of intra-abdominal abscess x 2, WILMA, abdominal washout, flexible sigmoidoscopy, umbilical and ventral hernia repair, 05/02/2025.
Still has NG tube in place, clamped this morning by surgical service. Did have 2 bowel movements this morning characterized as brown and burgundy.
Continue n.p.o., NG tube. Ice chips okay. Continue IV fluids.
No evidence of pancreatitis despite mild lipase elevation.
Hyponatremia -labs pending for today.
Hypokalemia -labs pending.
Elevated transaminases -possibly related to sepsis. Trending down. Hold rosuvastatin.
Macrocytic anemia -follow-up CBC today. No evidence of iron deficiency, B12 or folic acid deficiency.
DM2 with hyperglycemia -hemoglobin A1c 7.3%. Hold metformin. Add low-dose Lantus daily, continue low resistance NovoLog scale. Glucose 214 this morning.
Essential hypertension -blood pressure currently elevated related to pain, and inability to take home blood pressure meds. Getting as needed labetalol IV.
Rheumatoid arthritis -not on immunosuppression or anti-inflammatory meds.
Generalized anxiety disorder -as needed IV diazepam.
Alcohol use disorder -patient states last drink was 1-1/2 weeks ago. Was drinking 12 pack of beer daily. He states he wants to quit altogether. Low risk for alcohol withdrawal at this point in time.
Full code
Anticipated Discharge: > 48 hours
Subjective/Interval History
-
Date of Service: May 03, 2025
Patient seen and examined. Denies abdominal pain, feels comfortable. No complaints.
Objective Data
-
Labs:
Laboratory Results
05/03/25
08:30
WBC Pending
Hgb Pending
Hct Pending
Plt Count Pending
Sodium Pending
Potassium Pending
Chloride Pending
Carbon Dioxide Pending
BUN Pending
Creatinine Pending
Glucose Pending
Calcium Pending
Total Bilirubin Pending
AST Pending
ALT Pending
Alkaline Phosphatase Pending
Vital Signs:
Vital Signs
Temp Pulse Resp BP Pulse Ox
98 F 99 16 188/96 97
05/03/25 07:05 05/03/25 07:05 05/03/25 07:05 05/03/25 07:05 05/03/25 07:05
I&O
05/02/25 05/03/25 05/04/25
06:59 06:59 06:59
Intake Total 0 / 0 1485 / 1485
Output Total 175 / 175 2795 / 2795
Balance -175 / -175 -1310 / -1310
Review of Systems
-
History Source: Patient
All other systems: Reviewed and negative
[2025-05-03 09:02] LABS: ALT (SGPT) 47 U/L (0-50); AST (SGOT) 29 U/L (17-59); Albumin 2.5 g/dl (3.5-5.0); Alkaline Phosphatase 77 U/L (38-126); Blood Urea Nitrogen 19 mg/dl (9-20); Calcium 7.6 mg/dl (8.4-10.2); Carbon Dioxide 26 mmol/L (22-30); Chloride 107 mmol/L (98-107); Estimated Creatinine Clearance > 125 ml/min; Glucose 222 mg/dl (70-99); Potassium 3.4 mmol/L (3.5-5.1); Sodium 140 mmol/L (135-145); Total Protein 5.0 g/dl (6.3-8.2); eGFR > 60.00
[2025-05-03 09:03] LABS: Hematocrit 23.3 % (39.0-52.0); Hemoglobin 7.8 g/dL (13.0-18.0); Mean Corp Hgb Conc. 33.5 g/dL (33.0-37.0); Mean Corpuscular Volume 97.5 fL (80.0-94.0); Nucleated Red Blood Cells % 0 % (-); Platelet Count 753 10^3/uL (130-400); Red Cell Dist. Width 14.3 % (11.5-14.5)
--- NOTE | 2025-05-03 09:23 | W.PN.CRS1 ---
Today's Communication / Plan
-
ngt clamping trial
protonix
hold lovenox/toradol
recheck hemoglobin at noon
IV abx
Assessment/Plan
-
POD#2 Exploratory laparotomy, right hemicolectomy, sigmoidectomy, drainage of intra-abdominal abscess x 2, lysis of adhesions, abdominal washout, flexible sigmoidoscopy, TAP block, umbilical hernia repair, ventral hernia repair
WBC: 21.4 (23.2)
Hgb 7.8 (10.5)
NGT output: 2075ml
RYDER drain: 70ml
Jarvis: 650ml
-NGT clamping trial. If removed, npo with chips and sips.
-Hgb likely due to bleeding and diluational anemia. Will recheck at noon.
-Hold lovenox for now. TEDS/SCDS in place.
-Pain control: Tylenol standing, Diluadid PRN. Held Toradol due to hemoglobin.
-OOB as tolerated.
-Add protonix IV
-OR pathology pending
-Continue Zosyn IV
-IVFs while NPO
-No further evidence of incisional bleeding. Daily dressing changes.
Subjective Data
Procedure
05/02/25- Exploratory laparotomy, right hemicolectomy, sigmoidectomy, drainage of intra-abdominal abscess x 2, lysis of adhesions, abdominal washout, flexible sigmoidoscopy, TAP block, umbilical hernia repair, ventral hernia repair
Subjective Data
Date of Service: May 03, 2025
Patient states he has flatus and bowel movements. He had many bowel movements yesterday and this morning. Otherwise his pain is controlled. The NG tube is bothering him. He has been out of bed yesterday.
Objective Data
-
Vital Signs
Temp Pulse Resp BP Pulse Ox
98 F 99 16 188/96 97
05/03/25 07:05 05/03/25 07:05 05/03/25 07:05 05/03/25 07:05 05/03/25 07:05
Intake & Output
05/02/25 05/03/25 05/04/25
06:59 06:59 06:59
Intake Total 0 / 0 1485 / 1485
Output Total 175 / 175 2795 / 2795
Balance -175 / -175 -1310 / -1310
Intake:
IV fluids (Total) 1125 / 1125
IV piggybacks 300 / 300
Amount instilled into GI Tube ( 0 / 0 60 / 60
Total)
[place] Sump 0 / 0 60 / 60
Output:
Drain Output (Total) 75 / 75 70 / 70
Right Lower Abdomen Jayce- 75 / 75 70 / 70
Li
Gastrointestinal tube output ( 0 / 0 2074
Total)
[place] Sump 0 / 0 2074
Urine, Jarvis 100 / 100 650 / 650
Lab Results
05/03/25 08:30
Physical Exam
-
General: No Acute Distress and AOx3
Abdomen: Soft, Non Distended, Tender (Around incision) and Other (RYDER drain bloody)
Wound: No Signs of Infection, Dressing Changed and Other (No bleeding noted)
[2025-05-03] MEDS: LR 1000 IV (09:57)
[2025-05-03] MEDS: LANTUS 0.06 UNITS SC (09:58)
[2025-05-03] MEDS: PROTONIX IV 40 MG IV (09:59)
[2025-05-03] MEDS: NSS (PRESERVATIVE FREE) 10 ML IV (09:59)
--- NOTE | 2025-05-03 10:00 | PTCARENOTE ---
Patient had some burgundy stool during the night as reported by overnight babysitter.He started to have more frequent and larger stools all mostly blood.Some were dark and some had some brighter blood in them.Colorectal and hospitalists are aware.Patient had
nasogastric tube clamped by the doctor they wanted it back on suction with the bleeding.He is to be transferred to IMU when bed is available.Vital signs have remained stable so far.The patient's has been at the bedside with him also.
[2025-05-03] MEDS: KCL 270 MEQ IV (11:17)
--- NOTE | 2025-05-03 11:17 | W.PN.UPDATE ---
Update Note
Progress Note Update
I received a message from the nurse that the patient was having bright red blood from his rectum. This occurred several times. The patient's NG tube is more bloody as well. Holding NG tube clamping trial and putting back to suction. TXA given.
Holding Toradol and Lovenox. Rechecking hemoglobin, coags, and type and screen. Transfer to IMU. 1 unit packed red blood cells per hospitalist. was called by Dr. Miller but unfortunately the phone was not answered.
[2025-05-03] MEDS: TRANEXAMIC ACID 100 IV (11:25)
[2025-05-03 11:39] LABS: Magnesium 2.0 mg/dl (1.6-2.3)
[2025-05-03 11:49] LABS: INR 1.34; PT 17.1 Sec (11.4-14.6)
[2025-05-03 11:50] LABS: APTT 27.5 Sec (23.4-35.0)
[2025-05-03] MEDS: VALIUM INJECTION 2 MG IV (13:14)
--- NOTE | 2025-05-03 16:16 | CM ---
CM following re: discharge planning.
reviewed pt's chart, met with pt.
Pt is POD#2 Exploratory laparotomy, right hemicolectomy, sigmoidectomy, drainage of intra-abdominal abscess x 2, lysis of adhesions, abdominal washout, flexible sigmoidoscopy, TAP block, umbilical hernia repair, ventral hernia repair. Continue
supportive care.
Patient lives Independently with his in a [facility] Story Ranc[facility]
D/C plan: home with anticipated no needs. Spouse to transport at discharge.
CM will follow with discharge plan updates as hospitalization progresses
[2025-05-03] MEDS: NOVOLOG FLEXPEN-LOW RESISTANCE SC ×2 (16:27→21:05)
[2025-05-03 16:55] LABS: Hematocrit 20.5 % (39.0-52.0); Hemoglobin 6.9 g/dL (13.0-18.0)
--- NOTE | 2025-05-03 18:00 | PTCARENOTE ---
Patient transferred to IMU bed 3350.Report was given to receiving nurse.The patient was transported in his bed with all of his belongings.His son was also with us at time of transfer.
[2025-05-03 18:38] LABS: Glucose - Point of Care 160 mg/dl (70-99)
[2025-05-03] MEDS: DILAUDID 0.25 MG IV ×2 (18:38→23:36)
--- NOTE | 2025-05-03 18:43 | PTCARENOTE ---
Received into [address] 95 on tele, BP 167/75 96% on RAIR- c/o 8/10 abdominal pain, NGT site also some anxiety. Requesting Valium- not due yet- Accepted Dilaudid 0.25mg. NGT to continuous suction as ordered. Irrigated w 30ml
water. IVF/ K rider infusing- PRBC order noted- Midline dressing cdi- RYDER intact. Urinal at bedside. Accu check 161- awaiting Novolog pen.
[2025-05-03] MEDS: DILAUDID 0.5 MG IV (20:26)
--- NOTE | 2025-05-03 21:05 | PTCARENOTE ---
Pt BP hypertensive, Night DISABILITY RATER made aware along with that Pt will be receiving PRBC. Paining reassessed medication given (see mar). Pt remaining unit of blood called for and started. Pt appearing to be tolerating PRBC well. BP remains on higher side
all other vitals stable at this time. Pt has no complaints at this time. Call rock within reach.
[2025-05-04] VITALS (19 sets, daily range): BP systolic 151–204; BP diastolic 59–100; PULSE 62–95; BMI 26.3
[2025-05-04] LABS: Glucose - Point of Care 168 mg/dl (70-99)
[2025-05-04] MEDS: NOVOLOG FLEXPEN-LOW RESISTANCE 1 UNITS SC ×2 (00:46→08:15)
[2025-05-04] MEDS: VALIUM INJECTION 2 MG IV ×2 (00:52→11:18)
[2025-05-04] MEDS: DILAUDID 0.5 MG IV ×2 (03:43→20:48)
[2025-05-04] MEDS: ZOSYN 50 IV ×2 (05:13→11:08)
[2025-05-04] MEDS: TRANDATE 10 MG IV ×2 (06:08→16:22)
[2025-05-04 06:22] LABS: Hematocrit 21.5 % (39.0-52.0); Hemoglobin 7.1 g/dL (13.0-18.0); Mean Corp Hgb Conc. 33.0 g/dL (33.0-37.0); Mean Corpuscular Volume 91.9 fL (80.0-94.0); Nucleated Red Blood Cells % 0 % (-); Platelet Count 648 10^3/uL (130-400); Red Cell Dist. Width 16.6 % (11.5-14.5)
--- NOTE | 2025-05-04 06:45 | PTCARENOTE ---
Pt BP remained high, PRN medications given for BP and pain, CUSTOMER DEVELOPMENT MANAGER aware.
[2025-05-04 06:47] LABS: ALT (SGPT) 55 U/L (0-50); AST (SGOT) 61 U/L (17-59); Albumin 2.4 g/dl (3.5-5.0); Alkaline Phosphatase 70 U/L (38-126); Blood Urea Nitrogen 14 mg/dl (9-20); Calcium 7.8 mg/dl (8.4-10.2); Carbon Dioxide 25 mmol/L (22-30); Chloride 105 mmol/L (98-107); Estimated Creatinine Clearance > 125 ml/min; Glucose 169 mg/dl (70-99); Potassium 4.4 mmol/L (3.5-5.1); Sodium 135 mmol/L (135-145); Total Protein 4.7 g/dl (6.3-8.2); eGFR > 60.00
[2025-05-04 06:47] LABS: Glucose - Point of Care 155 mg/dl (70-99)
--- NOTE | 2025-05-04 07:49 | W.PN.HOSP.TC ---
Today's Communication/Plan
-
Transfuse
Monitor hemoglobin
CT angio abdomen/pelvis
Assessment / Plan
Assessment / Plan
Gen-awake, alert, NAD.
HEENT-NC, AT, anicteric, clear oral mm, NG tube
Neck-supple
CV-reg, no M, +S1/S2
Lungs-clear B/L
Abd-soft, NT, incision intact
Ext-no edema
Musculoskeletal-no cyanosis, clubbing
Skin-warm and dry
Neuro-grossly non-focal
Psych-calm, cooperative
Acute postoperative blood loss anemia -suspect related to NSAID use in the hospital. Was not on Lovenox or heparin. Rule out underlying bleeding lesion. Surgical service will order CT angio today. Discussed with Dr. Sellers.
Hemodynamically stable.
Admission hemoglobin 11.6 on 05/01.
Transfused 2 units of blood so far, hemoglobin 7.1 this morning. Will transfuse third unit of blood today.
Macrocytic anemia -follow-up CBC today. No evidence of iron deficiency, B12 or folic acid deficiency.
Sepsis due to perforated colon/abscess -hemodynamically stable. Sepsis present on admission, characterized by leukocytosis and tachycardia. Afebrile. Continue IV Zosyn.
Admission CT scan reviewed showing large irregular pericolonic abscess superolateral to the mid ascending colon extending along the inferior tip of the right hepatic lobe and gallbladder body, 6.7 x 7.5 x 6.0 cm. Marked surrounding inflammatory
change and large amounts of free intraperitoneal gas in the region, significant amount of free air located on of the right hemidiaphragm. Additional pericolonic abscess in the inferior right paracolic gutter extending from the cecum into the
anterior right pelvis, 9.3 x 2.9 x 13.5 cm. Normal appendix. Diverticulosis noted.
Stable after exploratory laparotomy, right hemicolectomy, sigmoidectomy, drainage of intra-abdominal abscess x 2, WILMA, abdominal washout, flexible sigmoidoscopy, umbilical and ventral hernia repair, 05/02/2025.
Still has NG tube in place, clamped this morning by surgical service.
Continue n.p.o., NG tube. Ice chips okay. Continue IV fluids.
No evidence of pancreatitis despite mild lipase elevation.
Hyponatremia -135 this morning. Improved.
Hypokalemia -improved.
Elevated transaminases -possibly related to sepsis. Trending down. Hold rosuvastatin.
DM2 with hyperglycemia -hemoglobin A1c 7.3%. Hold metformin. Continue Lantus/NovoLog insulin in the hospital. No need to discharge on insulin.
Essential hypertension -blood pressure currently elevated related to pain, and inability to take home blood pressure meds. Getting as needed labetalol IV.
Rheumatoid arthritis -not on immunosuppression or anti-inflammatory meds.
Generalized anxiety disorder -as needed IV diazepam.
Alcohol use disorder -patient states last drink was 1-1/2 weeks ago. Was drinking 12 pack of beer daily. He states he wants to quit altogether. Low risk for alcohol withdrawal at this point in time.
Full code
Anticipated Discharge: > 48 hours
Subjective/Interval History
-
Date of Service: May 04, 2025
Patient seen and examined, slept well, denies pain or shortness of breath. No complaints. Denies bleeding.
Objective Data
-
Labs:
Laboratory Results
05/04/25
05:44
WBC 18.7 H
Hgb 7.1 L
Hct 21.5 L
Plt Count 648 H
Sodium 135
Potassium 4.4 D
Chloride 105
Carbon Dioxide 25
BUN 14
Creatinine 0.7
Glucose 169 H
Calcium 7.8 L
Total Bilirubin 0.4
AST 61 H
ALT 55 H
Alkaline Phosphatase 70
Vital Signs:
Vital Signs
Temp Pulse Resp BP Pulse Ox
97.9 F 85 25 183/87 98
05/04/25 03:36 05/04/25 06:36 05/04/25 06:36 05/04/25 06:36 05/04/25 02:00
I&O
05/03/25 05/04/25 05/05/25
06:59 06:59 06:59
Intake Total 1485 / 1485 2645 / 2645
Output Total 2795 / 2795 1180 / 1180
Balance -1310 / -1310 1465 / 1465
Review of Systems
-
History Source: Patient
All other systems: Reviewed and negative
[2025-05-04] MEDS: NSS (PRESERVATIVE FREE) 10 ML IV (08:16)
[2025-05-04] MEDS: PROTONIX IV 40 MG IV (08:17)
[2025-05-04] MEDS: LANTUS 0.06 UNITS SC (08:21)
[2025-05-04] MEDS: RELISTOR 12 MG SC (08:22)
[2025-05-04] MEDS: LR 1000 IV ×2 (08:22→23:49)
--- NOTE | 2025-05-04 08:37 | W.PN.CRS1 ---
Today's Communication / Plan
-
CTA A/P
transfuse
serial h/h
Assessment/Plan
-
POD#3 Exploratory laparotomy, right hemicolectomy, sigmoidectomy, drainage of intra-abdominal abscess x 2, lysis of adhesions, abdominal washout, flexible sigmoidoscopy, TAP block, umbilical hernia repair, ventral hernia repair
WBC: 18.7, 21.4, 23.2
Hgb 7.1, 7.8, 6.9 - s/p 2 units (1 infusing now) total of 3
NGT output: 200ml
RYDER drain: 5ml
Jarvis: 975ml
-
-Serial h/h's
-Transufse PRN
-CTA A/P for ?bleeding at anastamotic sites
-Hold lovenox for now. TEDS/SCDS in place.
-Pain control: Tylenol standing, Diluadid PRN. Held Toradol due to hemoglobin.
-OOB as tolerated.
-Protonix IV (coffee ground in NGT)
-OR pathology pending
-Continue Zosyn IV
-IVFs while NPO
-No further evidence of incisional bleeding. Daily dressing changes.
Subjective Data
Procedure
05/02/25- Exploratory laparotomy, right hemicolectomy, sigmoidectomy, drainage of intra-abdominal abscess x 2, lysis of adhesions, abdominal washout, flexible sigmoidoscopy, TAP block, umbilical hernia repair, ventral hernia repair
Subjective Data
Date of Service: May 04, 2025
Patient states he is feeling okay today. Denies any further bleeding. No nausea or vomiting.
Objective Data
-
Vital Signs
Temp Pulse Resp BP Pulse Ox
98.5 F 87 18 192/85 98
05/04/25 08:24 05/04/25 08:24 05/04/25 08:24 05/04/25 08:24 05/04/25 02:00
Intake & Output
05/03/25 05/04/25 05/05/25
06:59 06:59 06:59
Intake Total 1485 / 1485 2645 / 2645
Output Total 2795 / 2795 1180 / 1180
Balance -1310 / -1310 1465 / 1465
Intake:
Oral fluids 60 / 60
IV fluids (Total) 1125 / 1125 1175 / 1175
IV piggybacks 300 / 300 570 / 570
Amount instilled into GI Tube ( /
Total)
[place] Sump 90 /
Blood products 250 / 250
Blood Product Amount Infused ( 500 / 500
mL)
Packed Rbc Leukoreduced Unit 250 / 250
[id number]
Packed Rbc Leukoreduced Unit 250 / 250
[id number]
Output:
Drain Output (Total) 5
Right Lower Abdomen Jayce- / 5 /
Li
Gastrointestinal tube output ( 2074 200 / 200
Total)
[place] Sump 2074 200 / 200
Urine, Jarvis 650 / 650
Urine, Voided 975 / 975
Lab Results
05/04/25 05:44
05/04/25 05:44
Physical Exam
-
General: No Acute Distress and AOx3
Abdomen: Soft, Non Distended, Non Tender and Other (Ryder drain sanginous)
Skin: Warm and Dry
Wound: Dressing in Place
[2025-05-04 11:42] LABS: Glucose - Point of Care 147 mg/dl (70-99)
[2025-05-04] MEDS: NOVOLOG FLEXPEN-LOW RESISTANCE SC ×3 (12:21→23:47)
--- NOTE | 2025-05-04 13:42 | W.PN.UPDATE ---
Update Note
Progress Note Update
I spoke to the patient and at bedside and went over the CT scan (no active bleeding noted). No surgery for now. Will continue to monitor Hgb and transfuse PRN.
--- NOTE | 2025-05-04 13:48 | CM ---
F/U: Hospitalist states that patient is doing better, still being monitored for his HBG, continuing to be transfuse, and will have CT angio abdomen/pelvis. PLAN: Anticipate Home No Needs
[2025-05-04] MEDS: LR IV (14:00)
[2025-05-04 15:52] LABS: Hematocrit 24.0 % (39.0-52.0); Hemoglobin 7.6 g/dL (13.0-18.0)
[2025-05-04] MEDS: UNASYN IV ×2 (16:20→21:00)
[2025-05-04 17:56] LABS: Glucose - Point of Care 145 mg/dl (70-99)
[2025-05-04] MEDS: VALIUM INJECTION 5 MG IV (17:57)
--- NOTE | 2025-05-04 18:14 | PTCARENOTE ---
AA, pleasant, c/o anxiety r/t NGT. Pain is minimal does not like effect of Dilaudid. Pt given IV Valium x1 this am with good effect- was asking for another dose earlier than ordered- d/w Dr. Hernandez- dose adjusted.
Pt received 1 unit PRBC today no difficulty. Repeat H/H relayed to Dr. Hernandez.
NGT flushed q4, minimal output. Denies nausea. OOB to bsc expelled sm/moderate sized burgandy clot. Pt states he feels relief afterwards.
Midline incision dressing changed- RYDER site cleansed. RYDER with sanguinous drainage.
Void without difficulty.
Family at bedside.
[2025-05-04 23:33] LABS: Glucose - Point of Care 142 mg/dl (70-99)
[2025-05-05] VITALS (18 sets, daily range): BP systolic 141–196; BP diastolic 76–112
[2025-05-05] MEDS: VALIUM INJECTION 5 MG IV (01:15)
[2025-05-05] MEDS: TRANDATE 10 MG IV (03:24)
[2025-05-05] MEDS: DILAUDID 0.5 MG IV ×4 (04:22→20:21)
[2025-05-05] MEDS: UNASYN IV ×4 (04:28→21:54)
[2025-05-05 04:53] LABS: Hematocrit 28.7 % (39.0-52.0); Hemoglobin 9.4 g/dL (13.0-18.0); Mean Corp Hgb Conc. 32.8 g/dL (33.0-37.0); Mean Corpuscular Volume 96.0 fL (80.0-94.0); Nucleated Red Blood Cells % 0 % (-); Platelet Count 860 10^3/uL (130-400); Red Cell Dist. Width 16.0 % (11.5-14.5)
--- NOTE | 2025-05-05 05:04 | PTCARENOTE ---
Addendum entered by Shweta Corral RN 05/05/25 05:26:
short time after getting up Pt RYDER drain again filling with 70cc. See I&O
Original Note:
Pt having 2 burgundy loose stools over night. Pt RYDER drain having blood output. Pt Asymptomatic at this time. Over night Pt needing BP medication for hypertension. Pain medication given per order. NG remains in place, Pt having hard time adapting to
NG tube, not appearing to tolerate well Pt telling RN ' the tube makes me anxious and depressed' emotional support, education and medication given to Pt. Pt very thankful for care and appreciative. ABD dressing remains in place, clean dry intact.
Call rock within reach
[2025-05-05 05:08] LABS: ALT (SGPT) 98 U/L (0-50); AST (SGOT) 113 U/L (17-59); Albumin 2.7 g/dl (3.5-5.0); Alkaline Phosphatase 102 U/L (38-126); Blood Urea Nitrogen 15 mg/dl (9-20); Calcium 8.5 mg/dl (8.4-10.2); Carbon Dioxide 22 mmol/L (22-30); Chloride 103 mmol/L (98-107); Estimated Creatinine Clearance > 125 ml/min; Glucose 170 mg/dl (70-99); Potassium 4.9 mmol/L (3.5-5.1); Sodium 131 mmol/L (135-145); Total Protein 5.2 g/dl (6.3-8.2); eGFR > 60.00
[2025-05-05 05:30] LABS: Glucose - Point of Care 186 mg/dl (70-99)
[2025-05-05] MEDS: NOVOLOG FLEXPEN-LOW RESISTANCE 1 UNITS SC ×2 (07:56→18:59)
--- NOTE | 2025-05-05 07:58 | W.PN.HOSP.TC ---
Today's Communication/Plan
-
Change IV fluids to normal saline
Continue incentive spirometry
Monitor NG output, drain output
Continue antibiotics
Assessment / Plan
Assessment / Plan
Gen-awake, alert, NAD.
HEENT-NC, AT, anicteric, clear oral mm, NG tube
Neck-supple
CV-reg, no M, +S1/S2
Lungs-clear B/L
Abd-soft, NT, incision intact
Ext-no edema
Musculoskeletal-no cyanosis, clubbing
Skin-warm and dry
Neuro-grossly non-focal
Psych-calm, cooperative
Acute postoperative blood loss anemia -suspect related to NSAID use in the hospital. Was not on Lovenox or heparin.
CT angiogram abdomen/pelvis without active bleeding.
Had 2 watery burgundy bowel movements this morning, 05/05.
Hemodynamically stable.
Admission hemoglobin 11.6 on 05/01. Hemoglobin archie 6.9 on 05/03.
Transfused 3 units of blood so far, hemoglobin improved to 9.4 this morning. Monitor for now.
Macrocytic anemia -follow-up CBC today. No evidence of iron deficiency, B12 or folic acid deficiency.
Sepsis due to perforated colon/abscess -hemodynamically stable. Sepsis present on admission, characterized by leukocytosis and tachycardia. Afebrile. Continue IV Unasyn.
Admission CT scan reviewed showing large irregular pericolonic abscess superolateral to the mid ascending colon extending along the inferior tip of the right hepatic lobe and gallbladder body, 6.7 x 7.5 x 6.0 cm. Marked surrounding inflammatory
change and large amounts of free intraperitoneal gas in the region, significant amount of free air located on of the right hemidiaphragm. Additional pericolonic abscess in the inferior right paracolic gutter extending from the cecum into the
anterior right pelvis, 9.3 x 2.9 x 13.5 cm. Normal appendix. Diverticulosis noted.
Stable after exploratory laparotomy, right hemicolectomy, sigmoidectomy, drainage of intra-abdominal abscess x 2, WILMA, abdominal washout, flexible sigmoidoscopy, umbilical and ventral hernia repair, 05/02/2025.
Still has NG tube in place, 150 cc output overnight.
Continue n.p.o., NG tube. Ice chips okay. Continue IV fluids.
No evidence of pancreatitis despite mild lipase elevation.
Hyponatremia -131 this morning. Will change fluids to normal saline.
Hypokalemia -improved.
Elevated transaminases -possibly related to sepsis. Holding rosuvastatin.
DM2 with hyperglycemia -hemoglobin A1c 7.3%. Hold metformin. Continue Lantus/NovoLog insulin in the hospital. No need to discharge on insulin.
Essential hypertension -blood pressure currently elevated related to pain, and inability to take home blood pressure meds. Getting as needed labetalol IV.
Rheumatoid arthritis -not on immunosuppression or anti-inflammatory meds.
Generalized anxiety disorder -as needed IV diazepam. Dose increased to 5 mg as needed.
Alcohol use disorder -patient states last drink was 1-1/2 weeks ago. Was drinking 12 pack of beer daily. He states he wants to quit altogether. Low risk for alcohol withdrawal at this point in time.
Full code
Anticipated Discharge: > 48 hours
Subjective/Interval History
-
Date of Service: May 05, 2025
Patient seen and examined, complaining of difficulty sleeping as he cannot sleep on his back. Abdominal pain is controlled.
Objective Data
-
Labs:
Laboratory Results
05/05/25
04:28
WBC 21.1 H
Hgb 9.4 L D
Hct 28.7 L
Plt Count 860 H D
Sodium 131 L
Potassium 4.9
Chloride 103
Carbon Dioxide 22
BUN 15
Creatinine 0.6 L
Glucose 170 H
Calcium 8.5
Total Bilirubin 0.6
AST 113 H
ALT 98 H
Alkaline Phosphatase 102
Vital Signs:
Vital Signs
Temp Pulse Resp BP Pulse Ox
98.8 F 80 18 172/91 98
05/05/25 07:18 05/05/25 06:00 05/05/25 06:00 05/05/25 06:00 05/04/25 22:30
I&O
05/04/25 05/05/25 05/06/25
06:59 06:59 06:59
Intake Total 2645 / 2645 2750 / 2750
Output Total 1180 / 1180 2260 / 2260
Balance 1465 / 1465 490 / 490
Review of Systems
-
History Source: Patient
All other systems: Reviewed and negative
[2025-05-05] MEDS: LANTUS 0.06 UNITS SC (09:14)
[2025-05-05] MEDS: NSS (PRESERVATIVE FREE) 10 ML IV (09:14)
[2025-05-05] MEDS: PROTONIX IV 40 MG IV (09:14)
[2025-05-05] MEDS: NSS 1000 IV (09:15)
--- NOTE | 2025-05-05 12:13 | W.PN.CRS1 ---
Today's Communication / Plan
-
d/c ngt and start clears
Assessment/Plan
-
64 yo male with perforated ascending colitis now POD#4 Exploratory laparotomy, right hemicolectomy, sigmoidectomy, drainage of intra-abdominal abscess x 2, lysis of adhesions, abdominal washout, flexible sigmoidoscopy, TAP block, umbilical hernia
repair, ventral hernia repair
Leukocytosis still present, no fevers
05/04 CTA abd/pelvis without active bleeding
Hgb stable 9.4 from 7.6 s/p 1 unit prbc on 05/04 & 2 units with TXA on 05/03
OR cx with ecoli and viridans strep
NGT output: minimal, no further coffee ground outputs
EVELIO drain: light serosanguineous
Incision without bleeding, fercho removed
Voiding, passing bm's/flatus
Plan
-d/c NGT
-start on CLD
-Pain control: Tylenol standing, Diluadid PRN.
-OOB as tolerated.
-Continue PPI
-OR pathology pending
-Continue Unasyn IV
-IVFs until good PO intake
-Hold lovenox for now. TEDS/SCDS in place.
Subjective Data
Procedure
05/02/25- Exploratory laparotomy, right hemicolectomy, sigmoidectomy, drainage of intra-abdominal abscess x 2, lysis of adhesions, abdominal washout, flexible sigmoidoscopy, TAP block, umbilical hernia repair, ventral hernia repair
Subjective Data
Date of Service: May 05, 2025
Pt seen and examined at bedside with Dr Sellers. Denies n/v. Nasal congestion and local irritation from NGT. Passing flatus and stools. Some old blood noted in BMs yesterday, now brown without melena. Minimal abdominal discomfort.
Objective Data
-
Vital Signs
Temp Pulse Resp BP Pulse Ox
97.7 F 93 17 172/91 98
05/05/25 11:36 05/05/25 08:00 05/05/25 08:00 05/05/25 06:00 05/04/25 22:30
Intake & Output
05/04/25 05/05/25 05/06/25
06:59 06:59 06:59
Intake Total 2645 / 2645 2750 / 2750 40 / 40
Output Total 1180 / 1180 2260 / 2260 110 / 110
Balance 1465 / 1465 490 / 490 -70 / -70
Intake:
Oral fluids 60 / 60
IV fluids (Total) 1175 / 1175 1880 / 1880
IV piggybacks 570 / 570 410 / 410
Feeding tube flush amount 30 / 30
Amount instilled into GI Tube ( 90 / 90 180 / 180 40 / 40
Total)
[place] Sump 90 / 90 180 / 180 40 / 40
Blood products 250 / 250
Blood Product Amount Infused ( 500 / 500 250 / 250
mL)
Packed Rbc Leukoreduced Unit 250 / 250
[id number]
Packed Rbc Leukoreduced Unit 250 / 250
[id number]
Packed Rbc Leukoreduced Unit 250 / 250
[id number]
Output:
Drain Output (Total) 160 / 160 110 / 110
Right Lower Abdomen Jayce- / 5 160 / 160 110 / 110
Li
Gastrointestinal tube output ( 200 / 200 150 / 150
Total)
[place] Sump 200 / 200 150 / 150
Urine, Voided 975 / 975 1950 / 1950
Other:
Number of unmeasured liquid
stools
Rectum 1
Lab Results
05/05/25 04:28
05/05/25 04:28
Physical Exam
-
General: No Acute Distress and AOx3
Abdomen: Soft, Non Distended, Non Tender and Other (Evelio drain light serosanguineous, NGT with minimal gastric outputs)
Skin: Warm and Dry
Wound: Dressing Changed
Incision: Other (fercho removed, narendra intact)
[2025-05-05 12:25] LABS: Glucose - Point of Care 143 mg/dl (70-99)
[2025-05-05] MEDS: NOVOLOG FLEXPEN-LOW RESISTANCE SC (15:24)
[2025-05-05] MEDS: TYLENOL 650 MG PO ×3 (15:25→20:22)
[2025-05-05] MEDS: COZAAR 50 MG PO (15:25)
[2025-05-05] MEDS: CYMBALTA DELAYED RELEASE 60 MG PO (15:26)
[2025-05-05] MEDS: NEURONTIN 300 MG PO ×2 (17:18→21:54)
[2025-05-05 18:11] LABS: Glucose - Point of Care 161 mg/dl (70-99)
[2025-05-05] MEDS: TENORMIN 25 MG PO (21:54)
[2025-05-05] MEDS: VALIUM 5 MG PO (21:54)
[2025-05-05 23:44] LABS: Glucose - Point of Care 140 mg/dl (70-99)
[2025-05-06] VITALS (12 sets, daily range): BP systolic 109–180; BP diastolic 52–102
[2025-05-06] MEDS: DILAUDID 0.5 MG IV ×4 (01:00→15:40)
[2025-05-06] MEDS: TYLENOL 650 MG PO ×5 (01:00→20:29)
[2025-05-06] MEDS: UNASYN IV ×4 (05:40→22:46)
[2025-05-06 05:49] LABS: Hematocrit 27.3 % (39.0-52.0); Hemoglobin 9.0 g/dL (13.0-18.0); Mean Corp Hgb Conc. 33.0 g/dL (33.0-37.0); Mean Corpuscular Volume 91.0 fL (80.0-94.0); Platelet Count 969 10^3/uL (130-400); Red Cell Dist. Width 15.3 % (11.5-14.5)
[2025-05-06 05:57] LABS: ALT (SGPT) 162 U/L (0-50); AST (SGOT) 141 U/L (17-59); Albumin 2.9 g/dl (3.5-5.0); Alkaline Phosphatase 193 U/L (38-126); Blood Urea Nitrogen 13 mg/dl (9-20); Calcium 8.7 mg/dl (8.4-10.2); Carbon Dioxide 24 mmol/L (22-30); Chloride 103 mmol/L (98-107); Estimated Creatinine Clearance > 125 ml/min; Glucose 175 mg/dl (70-99); Potassium 4.9 mmol/L (3.5-5.1); Sodium 130 mmol/L (135-145); Total Protein 5.6 g/dl (6.3-8.2); eGFR > 60.00
--- NOTE | 2025-05-06 06:16 | PTCARENOTE ---
Pt c/o 8/10 pain throughout the night with minimal relief from PRN 0.5 mg dose of Dilaudid. Abd is firm, tender to the touch. RYDER drain output throughout shift was 100 ml of serosanguineous fluid. Wound dressing C/D/I. 2x BM throughout the night;
liquid stool; no signs of bleeding. Pt resting in bed with call rock in reach.
[2025-05-06] MEDS: CYMBALTA DELAYED RELEASE 60 MG PO (08:12)
[2025-05-06] MEDS: NEURONTIN 300 MG PO ×3 (08:12→22:46)
[2025-05-06] MEDS: PROTONIX 40 MG PO (08:13)
[2025-05-06] MEDS: COZAAR 50 MG PO (08:13)
--- NOTE | 2025-05-06 08:22 | W.PN.HOSP.TC ---
Today's Communication/Plan
-
TSH, Uosm, Sosm, Usodium
Fluid restriction
Assessment / Plan
Assessment / Plan
Gen-awake, alert, NAD.
HEENT-NC, AT, anicteric, clear oral mm
Neck-supple
CV-reg, no M, +S1/S2
Lungs-clear B/L
Abd-soft, NT, incision intact
Ext-no edema
Musculoskeletal-no cyanosis, clubbing
Skin-warm and dry
Neuro-grossly non-focal
Psych-calm, cooperative
Acute postoperative blood loss anemia -suspect related to NSAID use in the hospital. Was not on Lovenox or heparin.
CT angiogram abdomen/pelvis without active bleeding.
Had 2 watery burgundy bowel movements this morning, 05/05.
Hemodynamically stable.
Admission hemoglobin 11.6 on 05/01. Hemoglobin archie 6.9 on 05/03.
Transfused 3 units of blood so far, hemoglobin now stable, 9.0 today.
No evidence of iron deficiency, B12 or folic acid deficiency.
Sepsis due to perforated colon/abscess -hemodynamically stable. Sepsis present on admission, characterized by leukocytosis and tachycardia. Afebrile. Continue IV Unasyn.
Admission CT scan reviewed showing large irregular pericolonic abscess superolateral to the mid ascending colon extending along the inferior tip of the right hepatic lobe and gallbladder body, 6.7 x 7.5 x 6.0 cm. Marked surrounding inflammatory
change and large amounts of free intraperitoneal gas in the region, significant amount of free air located on of the right hemidiaphragm. Additional pericolonic abscess in the inferior right paracolic gutter extending from the cecum into the
anterior right pelvis, 9.3 x 2.9 x 13.5 cm. Normal appendix. Diverticulosis noted.
Stable after exploratory laparotomy, right hemicolectomy, sigmoidectomy, drainage of intra-abdominal abscess x 2, WILMA, abdominal washout, flexible sigmoidoscopy, umbilical and ventral hernia repair, 05/02/2025.
NG tube removed 05/05. Tolerating clear liquid diet. Off IV fluids.
No evidence of pancreatitis despite mild lipase elevation.
Hyponatremia -130 this morning. Suspect pain associated SIADH. Mild fluid restriction. Will check TSH, serum osmolarity, urine osmolarity, urine sodium.
Hypokalemia -improved.
Elevated transaminases -possibly related to sepsis. Holding rosuvastatin. Liver looks normal on CT.
DM2 with hyperglycemia -hemoglobin A1c 7.3%. Hold metformin. Continue Lantus/NovoLog insulin in the hospital. No need to discharge on insulin.
Essential hypertension -blood pressure currently elevated related to pain, and inability to take home blood pressure meds. Getting as needed labetalol IV.
Rheumatoid arthritis -not on immunosuppression or anti-inflammatory meds.
Generalized anxiety disorder -continue as needed diazepam.
Alcohol use disorder -patient states last drink was 1-1/2 weeks ago. Was drinking 12 pack of beer daily. He states he wants to quit altogether. Low risk for alcohol withdrawal at this point in time.
Full code
Anticipated Discharge: > 48 hours
Subjective/Interval History
-
Date of Service: May 06, 2025
Patient seen and examined, feeling much better. Slept well. Pain is relatively controlled. No complaints.
Objective Data
-
Labs:
Laboratory Results
05/06/25
05:15
WBC 16.5 H
Hgb 9.0 L
Hct 27.3 L
Plt Count 969 H
Sodium 130 L
Potassium 4.9
Chloride 103
Carbon Dioxide 24
BUN 13
Creatinine 0.5 L
Glucose 175 H
Calcium 8.7
Total Bilirubin 0.6
AST 141 H
ALT 162 H
Alkaline Phosphatase 193 H
Vital Signs:
Vital Signs
Temp Pulse Resp BP Pulse Ox
97.6 F 73 15 170/85 96
05/06/25 08:02 05/06/25 06:00 05/06/25 06:00 05/06/25 04:00 05/05/25 08:30
I&O
05/05/25 05/06/25 05/07/25
06:59 06:59 06:59
Intake Total 2750 / 2750 2320 / 2320
Output Total 2260 / 2260 1285 / 1285
Balance 490 / 490 1035 / 1035
Review of Systems
-
History Source: Patient
All other systems: Reviewed and negative
[2025-05-06] MEDS: NOVOLOG FLEXPEN-LOW RESISTANCE 1 UNITS SC ×3 (09:37→18:03)
[2025-05-06] MEDS: LANTUS 0.06 UNITS SC (09:38)
[2025-05-06 09:39] LABS: TSH 4.21 uIU/ml (0.47-4.68)
[2025-05-06 09:41] LABS: Glucose - Point of Care 154 mg/dl (70-99)
[2025-05-06 12:04] LABS: Glucose - Point of Care 166 mg/dl (70-99)
--- NOTE | 2025-05-06 12:30 | W.PN.CRS1 ---
Today's Communication / Plan
-
Full liquids
Assessment/Plan
-
64 yo male with perforated ascending colitis now POD#5 Exploratory laparotomy, right hemicolectomy, sigmoidectomy, drainage of intra-abdominal abscess x 2, lysis of adhesions, abdominal washout, flexible sigmoidoscopy, TAP block, umbilical hernia
repair, ventral hernia repair
Afebrile, VSS
Leukocytosis still present, trending down
Thrombocytosis
05/04 CTA abd/pelvis without active bleeding
H/h stable; s/p 1 unit prbc on 05/04 & 2 units with TXA on 05/03
OR cx with ecoli and viridans strep
NGT out on 05/05, tolerating clears
RYDER drain: light serosanguineous
No furhter bloody stools/incisional bleeding
Voiding, passing bm's/flatus
Plan
-Advance to FLD
-Pain control: Tylenol standing, oxycodone, Dilaudid PRN.
-OOB as tolerated.
-Continue PPI
-OR pathology pending
-Continue Unasyn IV
-Follow off IVF
-Lovenox 40mg sq for VTE ppx. TEDS/SCDS
Medical management as per primary team
Subjective Data
Procedure
05/02/25- Exploratory laparotomy, right hemicolectomy, sigmoidectomy, drainage of intra-abdominal abscess x 2, lysis of adhesions, abdominal washout, flexible sigmoidoscopy, TAP block, umbilical hernia repair, ventral hernia repair
Subjective Data
Date of Service: May 06, 2025
Pt seen and examined at bedside with Dr. Sellers. Denies n/v. Slept very well last night for the first time in a while. Minimal discomfort. Passing gas and stools, denies further bloody bms.
Objective Data
-
Vital Signs
Temp Pulse Resp BP Pulse Ox
97.6 F 71 13 133/81 97
05/06/25 11:09 05/06/25 10:00 05/06/25 10:00 05/06/25 10:00 05/06/25 10:48
Intake & Output
05/05/25 05/06/25 05/07/25
06:59 06:59 06:59
Intake Total 2750 / 2750 2320 / 2320
Output Total 2260 / 2260 1285 / 1285 700 / 700
Balance 490 / 490 1035 / 1035 -700 / -700
Intake:
Oral fluids 1480 / 1480
IV fluids (Total) 1880 / 1880 560 / 560
IV piggybacks 410 / 410 240 / 240
Feeding tube flush amount 30 / 30
Amount instilled into GI Tube ( 180 / 180 40 / 40
Total)
[place] Sump 180 / 180 40 / 40
Blood Product Amount Infused ( 250 / 250
mL)
Packed Rbc Leukoreduced Unit 250 / 250
[id number]
Output:
Drain Output (Total) 160 / 160 285 / 285
Right Lower Abdomen Jayce- 160 / 160 285 / 285
Li
Gastrointestinal tube output ( 150 / 150
Total)
[place] Sump 150 / 150
Urine, Voided 1950 / 1950 1000 / 1000 700 / 700
Other:
Number of unmeasured liquid
stools
Rectum 1
Lab Results
05/06/25 05:15
05/06/25 05:15
Physical Exam
-
General: No Acute Distress and AOx3
Abdomen: Soft, Non Distended, Non Tender and Other (Ryder drain light serosanguineous)
Skin: Warm and Dry
Wound: Dressing Changed
Incision: Other (narendra intact)
[2025-05-06] MEDS: TYLENOL PO ×2 (13:27→23:53)
[2025-05-06] MEDS: VALIUM 5 MG PO (13:58)
[2025-05-06] MEDS: LOVENOX 40 MG SC (17:53)
[2025-05-06 18:11] LABS: Glucose - Point of Care 174 mg/dl (70-99)
[2025-05-06] MEDS: ROXICODONE 5 MG PO (20:30)
[2025-05-06] MEDS: TENORMIN 25 MG PO (22:46)
[2025-05-07] VITALS (8 sets, daily range): BP systolic 115–151; BP diastolic 56–93
[2025-05-07 00:22] LABS: Glucose - Point of Care 147 mg/dl (70-99)
[2025-05-07] MEDS: DILAUDID 0.5 MG IV ×3 (00:27→19:43)
[2025-05-07] MEDS: TYLENOL 650 MG PO ×6 (03:55→23:48)
[2025-05-07] MEDS: UNASYN IV ×4 (03:56→22:01)
--- NOTE | 2025-05-07 04:09 | PTCARENOTE ---
Pt c/o pain and discomfort since eating more. 'very sore' throughout abdomen. Able to get up and use BSC with minimal assistance. episdoes of incontinence of bowel; liquid stools; increased flatulence. Pt very emotional throughout shift.
Emotional support provided. Resting in bed with call rock in reach.
[2025-05-07] MEDS: ROXICODONE 5 MG PO ×2 (04:20→23:48)
[2025-05-07] MEDS: VALIUM 5 MG PO (04:20)
[2025-05-07 04:36] LABS: Hematocrit 27.6 % (39.0-52.0); Hemoglobin 9.1 g/dL (13.0-18.0); Mean Corp Hgb Conc. 33.0 g/dL (33.0-37.0); Mean Corpuscular Volume 92.9 fL (80.0-94.0); Platelet Count 980 10^3/uL (130-400); Red Cell Dist. Width 15.1 % (11.5-14.5)
[2025-05-07 05:05] LABS: ALT (SGPT) 116 U/L (0-50); AST (SGOT) 68 U/L (17-59); Albumin 3.0 g/dl (3.5-5.0); Alkaline Phosphatase 191 U/L (38-126); Blood Urea Nitrogen 10 mg/dl (9-20); Calcium 9.1 mg/dl (8.4-10.2); Carbon Dioxide 24 mmol/L (22-30); Chloride 103 mmol/L (98-107); Estimated Creatinine Clearance > 125 ml/min; Glucose 162 mg/dl (70-99); Potassium 5.1 mmol/L (3.5-5.1); Sodium 131 mmol/L (135-145); Total Protein 5.7 g/dl (6.3-8.2); eGFR > 60.00
[2025-05-07] MEDS: PROTONIX 40 MG PO (07:35)
[2025-05-07] MEDS: COZAAR 50 MG PO (07:35)
[2025-05-07] MEDS: NEURONTIN 300 MG PO ×3 (07:35→22:00)
[2025-05-07] MEDS: CYMBALTA DELAYED RELEASE 60 MG PO (07:35)
[2025-05-07 07:59] LABS: Glucose - Point of Care 170 mg/dl (70-99)
[2025-05-07] MEDS: LANTUS 0.06 UNITS SC (08:10)
[2025-05-07] MEDS: NOVOLOG FLEXPEN-LOW RESISTANCE 1 UNITS SC ×2 (08:11→13:01)
--- NOTE | 2025-05-07 10:38 | W.PN.CRS1 ---
Today's Communication / Plan
-
Diet advancement.
Assessment/Plan
-
POD 5.
1. tolerated fulls with Bms. Diet advanced.
2. WBC down to 15.1. Continue antibiotics.
3. will continue to follow.
Subjective Data
Procedure
05/02/25- Exploratory laparotomy, right hemicolectomy, sigmoidectomy, drainage of intra-abdominal abscess x 2, lysis of adhesions, abdominal washout, flexible sigmoidoscopy, TAP block, umbilical hernia repair, ventral hernia repair
Subjective Data
Date of Service: May 07, 2025
No complaints.
Tolerated full.
Having BMs.
Objective Data
-
Vital Signs
Temp Pulse Resp BP Pulse Ox
98.5 F 76 17 126/79 97
05/07/25 07:58 05/07/25 07:35 05/07/25 06:00 05/07/25 07:35 05/06/25 10:48
Intake & Output
05/06/25 05/07/25 05/08/25
06:59 06:59 06:59
Intake Total 2320 / 2320 1360 / 1360
Output Total 1285 / 1285 1989 / 1989
Balance 1035 / 1035 -630 / -630
Intake:
Oral fluids 1480 / 1480 1240 / 1240
IV fluids (Total) 560 / 560
IV piggybacks 240 / 240 120 / 120
Amount instilled into GI Tube ( 40 / 40
Total)
[place] Sump 40 / 40
Output:
Drain Output (Total) 285 / 285 90 / 90
Right Lower Abdomen Jayce- 285 / 285 90 / 90
Li
Urine, Voided 1000 / 1000 1900 / 1900
Other:
Number of approximated MODERATE 1
amounts of urine
Number of unmeasured liquid
stools
Rectum 1
Lab Results
05/07/25 04:22
05/07/25 04:22
Physical Exam
-
General: No Acute Distress
Chest: Clear
Cardiovascular: Regular Rate & Rhythm
Abdomen: Soft, Non Distended, Tender (mild incisional) and Other (RYDER with SS )
Incision: Clear, Dry, Intact and No Skin Erythema
--- NOTE | 2025-05-07 11:53 | W.PN.HOSP.TC ---
Today's Communication/Plan
-
solid diet
continue iv abx
transfer out of imu
Assessment / Plan
Assessment / Plan
64-year-old male with PMH of HTN, HLD, prediabetes, BRANDI, rheumatoid arthritis who presents with abdominal pain.
#Sepsis due to perforated colon/abscess -hemodynamically stable.
-Sepsis present on admission, characterized by leukocytosis and tachycardia. Afebrile.
-Continue IV Unasyn.
Admission CT scan reviewed showing large irregular pericolonic abscess superolateral to the mid ascending colon extending along the inferior tip of the right hepatic lobe and gallbladder body, 6.7 x 7.5 x 6.0 cm. Marked surrounding inflammatory
change and large amounts of free intraperitoneal gas in the region, significant amount of free air located on of the right hemidiaphragm. Additional pericolonic abscess in the inferior right paracolic gutter extending from the cecum into the
anterior right pelvis, 9.3 x 2.9 x 13.5 cm. Normal appendix. Diverticulosis noted.
- Stable after exploratory laparotomy, right hemicolectomy, sigmoidectomy, drainage of intra-abdominal abscess x 2, WILMA, abdominal washout, flexible sigmoidoscopy, umbilical and ventral hernia repair, 05/02/2025.
-NG tube removed 05/05. Tolerating clear liquid diet. Off IV fluids.
-No evidence of pancreatitis despite mild lipase elevation.
-CRS following and plan to remove Evelio tomorrow
- Advance diet to solids as per CRS recs
#Acute postoperative blood loss anemia -suspect related to NSAID use in the hospital.
CT angiogram abdomen/pelvis without active bleeding.
-Had 2 watery burgundy bowel movements this morning, 05/05.
-Hemodynamically stable.
-Admission hemoglobin 11.6 on 05/01. Hemoglobin archie 6.9 on 05/03.
-Transfused 3 units of blood so far, hemoglobin now stable
-No evidence of iron deficiency, B12 or folic acid deficiency.
#Hyponatremia -131 this morning.
-Suspect pain associated SIADH.
-TSH wnl
#Hypokalemia
-resolved
#Elevated transaminases -possibly related to sepsis. Holding rosuvastatin. Liver looks normal on CT.
#DM2 with hyperglycemia -hemoglobin A1c 7.3%. Hold metformin. Continue Lantus/NovoLog insulin in the hospital. No need to discharge on insulin.
#Essential hypertension
-home losartan
#Rheumatoid arthritis -not on immunosuppression or anti-inflammatory meds.
#Generalized anxiety disorder -continue as needed diazepam.
#Alcohol use disorder -patient states last drink was 1-1/2 weeks ago. Was drinking 12 pack of beer daily. He states he wants to quit altogether. Low risk for alcohol withdrawal at this point in time.
Full code
DVt ppx Lovenox
Anticipated Discharge: 24 - 48 hours
Subjective/Interval History
-
Date of Service: May 07, 2025
AFVSS. Offers no new complaints.
Objective Data
-
Labs:
Laboratory Results
05/07/25
04:22
WBC 15.1 H
Hgb 9.1 L
Hct 27.6 L
Plt Count 980 H
Sodium 131 L
Potassium 5.1
Chloride 103
Carbon Dioxide 24
BUN 10
Creatinine 0.6 L
Glucose 162 H
Calcium 9.1
Total Bilirubin 0.7
AST 68 H
ALT 116 H
Alkaline Phosphatase 191 H
Vital Signs:
Vital Signs
Temp Pulse Resp BP Pulse Ox
98.2 F 76 17 126/79 97
05/07/25 11:10 05/07/25 07:35 05/07/25 06:00 05/07/25 07:35 05/06/25 10:48
I&O
05/06/25 05/07/25 05/08/25
06:59 06:59 06:59
Intake Total 2320 / 2320 1360 / 1360
Output Total 1285 / 1285 1989
Balance 1035 / 1035 -630 / -630
Review of Systems
-
History Source: Patient
All other systems: Reviewed and negative
Physical Exam
-
General: Well Developed, Well Nourished and No Apparent Distress
HEENT: Normocephalic
Respiratory: Clear to Auscultation
Cardiac: Regular Rhythm
GI: Soft, Nontender, Nondistended and Other (EVELIO drain with SS)
Skin: Warm
Neuro: Awake, Alert and Oriented
Psych: Calm
Data Reviewed
-
Labs: Labs Reviewed by me, Discussed with Physician, Discussed with Patient and Discussed with Family
[2025-05-07 12:47] LABS: Glucose - Point of Care 153 mg/dl (70-99)
--- NOTE | 2025-05-07 15:00 | PTCARENOTE ---
Patient upgraded to solid food today for diet. Patient ate a cheeseburger for lunch and rang call rock and stated he had abdominal pain, 03/28. Patient reports he thinks he ate too much. PRN Dilaudid given for pain, see SEP. Dressings changed by
this morning, all CDI. Pt walked back and forth to bathroom today. PT to see patient. Assessment, care and VS as charted.
--- NOTE | 2025-05-07 16:29 | CM ---
F/U: Hospitalist Notes state that patient will solid diet and continue IV Abx. Thus far, no other discharge needs, RN stated that likely the patient will stops IV Abx tomorrow to discharge home (NO plan for PICC). PLAN: Anticipate Home No Needs
[2025-05-07] MEDS: LOVENOX 40 MG SC (17:33)
[2025-05-07] MEDS: NOVOLOG FLEXPEN-LOW RESISTANCE 2 UNITS SC (17:38)
[2025-05-07 17:49] LABS: Glucose - Point of Care 208 mg/dl (70-99)
--- NOTE | 2025-05-07 21:43 | PTCARENOTE ---
Assumed care of pt from dayshift RN after change of shift report. Pt is aa0x3. Pt c/o abdominal pain/ fullness feeling after eating dinner, pt states he ate is dinner very fast. pt educated upon eating food slower, and this RN suggested eating
coffee bar attendant foods. Pt requested pain meds for the severe pain. medication administered see SEP. assessment as documented call light in reach.
[2025-05-07] MEDS: TENORMIN 25 MG PO (22:00)
[2025-05-07 22:17] LABS: Glucose - Point of Care 161 mg/dl (70-99)
[2025-05-08] MEDS: UNASYN IV ×3 (04:23→15:30)
[2025-05-08] MEDS: TYLENOL 650 MG PO ×3 (04:23→15:30)
[2025-05-08] MEDS: ROXICODONE 5 MG PO ×3 (04:25→13:36)
[2025-05-08 07:30] LABS: Glucose - Point of Care 185 mg/dl (70-99)
[2025-05-08 07:57] VITALS: BP 144/87
[2025-05-08] MEDS: NOVOLOG FLEXPEN-LOW RESISTANCE 1 UNITS SC (07:59)
[2025-05-08] MEDS: COZAAR 50 MG PO (08:00)
[2025-05-08] MEDS: CYMBALTA DELAYED RELEASE 60 MG PO (08:00)
[2025-05-08] MEDS: LANTUS 0.06 UNITS SC (08:00)
[2025-05-08] MEDS: NEURONTIN 300 MG PO ×2 (08:00→15:30)
[2025-05-08] MEDS: PROTONIX 40 MG PO (08:00)
[2025-05-08 08:36] LABS: Hematocrit 26.1 % (39.0-52.0); Hemoglobin 8.2 g/dL (13.0-18.0); Mean Corp Hgb Conc. 31.4 g/dL (33.0-37.0); Mean Corpuscular Volume 97.0 fL (80.0-94.0); Nucleated Red Blood Cells % 0 % (-); Platelet Count 767 10^3/uL (130-400); Red Cell Dist. Width 14.8 % (11.5-14.5)
[2025-05-08 08:48] LABS: Blood Urea Nitrogen 9 mg/dl (9-20); Calcium 9.0 mg/dl (8.4-10.2); Carbon Dioxide 26 mmol/L (22-30); Chloride 103 mmol/L (98-107); Estimated Creatinine Clearance > 125 ml/min; Glucose 181 mg/dl (70-99); Potassium 4.2 mmol/L (3.5-5.1); Sodium 131 mmol/L (135-145); eGFR > 60.00
--- NOTE | 2025-05-08 10:11 | W.PN.CRS1 ---
Addendum entered and electronically signed by Ish Kenny MD 05/18/25 16:10:
For CDI purposes: acute peritonitis is a valid diagnosis
Original Note:
Today's Communication / Plan
-
As below
Assessment/Plan
-
64-year-old male with PMH of HTN, HLD, prediabetes, BRANDI, rheumatoid arthritis (not on any maintenance therapy, gets routine joint injections) who presents with 1.5 weeks of abdominal pain after lifting an air conditioner, associated with 2-3
episodes of vomiting 1 week [employer] as well as inability to tolerate solid foods over several days. He has never had a colonoscopy. In the ED, his WBC was 23.[address] scan showed pneumoperitoneum associated with right sided colitis, concerning for
perforated colon.
POD#7 Exploratory laparotomy, right hemicolectomy, sigmoidectomy, drainage of intra-abdominal abscess x 2, lysis of adhesions, abdominal washout, flexible sigmoidoscopy, TAP block, umbilical hernia repair, ventral hernia repair
05/03 - GI bleeding, s/p TXA, pRBCx2
05/04 CTA - negative, pRBC x1
05/05 NGT removed
AFVSS
WBC 11.3 from 15.1, Hb 8.2 from 9.1, CR 0.6
�Will repeat CBC at noon; if Hb stable, okay for DC from surgical standpoint
- Continue regular/diabetic diet
-Pain control: Tylenol standing, oxycodone, Dilaudid PRN.
-OOB as tolerated.
-Continue PPI
-OR pathology pending
-Continue Unasyn IV; would continue for an additional 7 days for 2 weeks total
-Lovenox 40mg sq for VTE ppx. TEDS/SCDS
�Appreciate hospitalist
Subjective Data
Procedure
05/02/25- Exploratory laparotomy, right hemicolectomy, sigmoidectomy, drainage of intra-abdominal abscess x 2, lysis of adhesions, abdominal washout, flexible sigmoidoscopy, TAP block, umbilical hernia repair, ventral hernia repair
Subjective Data
Date of Service: May 08, 2025
No overnight events.
Pain controlled.
Denies nausea/vomiting. Tolerating diet.
+BMs +voiding
Objective Data
-
Vital Signs
Temp Pulse Resp BP Pulse Ox
98.5 F 76 16 144/87 97
05/08/25 07:35 05/08/25 08:00 05/08/25 07:57 05/08/25 08:00 05/08/25 07:57
Intake & Output
05/07/25 05/08/25 05/09/25
06:59 06:59 06:59
Intake Total 1360 / 1360 960 / 960 360 / 360
Output Total 1989 / 1989 2350 / 2350 925 / 925
Balance -630 / -630 -1390 / -1390 -565 / -565
Intake:
Oral fluids 1240 / 1240 720 / 720 240 / 240
IV piggybacks 120 / 120 240 / 240 120 / 120
Output:
Drain Output (Total) 90 / 90
Right Lower Abdomen Jayce- 90 / 90
Li
Urine, Voided 1900 / 1900 2350 / 2350 925 / 925
Other:
Number of approximated MODERATE 1 1
amounts of urine
Lab Results
05/08/25 08:17
Physical Exam
-
General: No Acute Distress and AOx3
HEENT: Grossly Normal
Abdomen: Soft, Non Distended, Tender (Appropriately tender near midline incision), No Guarding and No Rebound
Skin: Warm and Dry
Wound: No Signs of Infection, No Skin Erythema and Other (Midline incision well-approximated with intermittent narendra, no surrounding erythema or drainage; RYDER drain site also clean without erythema or drainage)
[2025-05-08] MEDS: TYLENOL PO (11:12)
[2025-05-08 12:11] LABS: Glucose - Point of Care 147 mg/dl (70-99)
[2025-05-08 12:36] VITALS: BP 143/76; PULSE 96; O2SAT 98
[2025-05-08] MEDS: NOVOLOG FLEXPEN-LOW RESISTANCE SC (13:14)
[2025-05-08 13:39] LABS: Hematocrit 27.7 % (39.0-52.0); Hemoglobin 8.7 g/dL (13.0-18.0); Mean Corp Hgb Conc. 31.4 g/dL (33.0-37.0); Mean Corpuscular Volume 97.2 fL (80.0-94.0); Nucleated Red Blood Cells % 0 % (-); Platelet Count 869 10^3/uL (130-400); Red Cell Dist. Width 15.0 % (11.5-14.5)
--- NOTE | 2025-05-08 14:46 | W.PN.HOSP.TC ---
Today's Communication/Plan
-
Assessment / Plan
Assessment / Plan
General: No Apparent Distress, Comfortable and Conversant
HEENT: NormoCephalic, Moist mucous membranes, Atraumatic
Respiratory: Clear and Non Labored Respirations
Cardiac: S1/S2 and Regular Rhythm; No Rub or Gallop
GI: Soft, midline incision CDI, RYDER drain removed
Musculoskeletal: No Edema, no deformity
Skin: Warm and dry
: No Jarvis
Neuro: Awake, Alert, Nonfocal/grossly intact
Psych: Calm and cooperative
64-year-old male with PMH of HTN, HLD, prediabetes, BRANDI, rheumatoid arthritis who presents with abdominal pain.
#Sepsis due to perforated colon/abscess -hemodynamically stable.
-Sepsis present on admission, characterized by leukocytosis and tachycardia. Afebrile.
-Continue IV Unasyn.
Admission CT scan reviewed showing large irregular pericolonic abscess superolateral to the mid ascending colon extending along the inferior tip of the right hepatic lobe and gallbladder body, 6.7 x 7.5 x 6.0 cm. Marked surrounding inflammatory
change and large amounts of free intraperitoneal gas in the region, significant amount of free air located on of the right hemidiaphragm. Additional pericolonic abscess in the inferior right paracolic gutter extending from the cecum into the
anterior right pelvis, 9.3 x 2.9 x 13.5 cm. Normal appendix. Diverticulosis noted.
- Stable after exploratory laparotomy, right hemicolectomy, sigmoidectomy, drainage of intra-abdominal abscess x 2, WILMA, abdominal washout, flexible sigmoidoscopy, umbilical and ventral hernia repair, 05/02/2025.
- NG tube removed 05/05. Diet advanced to solids yesterday 05/07 which he has been tolerating well
- CRS following, RYDER drain removed yesterday 05/07
- Tolerating p.o. diet with appropriate bowel movements
- Appreciate guidance from colorectal surgery
- Continue antibiotics with Unasyn for now, will continue antibiotics for another 7 days to complete a total 2-week course
#Acute postoperative blood loss anemia -suspect related to NSAID use in the hospital.
CT angiogram abdomen/pelvis without active bleeding.
-Had 2 watery burgundy bowel movements this morning, 05/05.
-Hemodynamically stable.
-Admission hemoglobin 11.6 on 05/01. Hemoglobin archie 6.9 on 05/03, stable at 8.7 today
-Transfused 3 units of blood so far, hemoglobin now stable
-No evidence of iron deficiency, B12 or folic acid deficiency.
#Hyponatremia -131 again this morning.
-Suspect pain associated SIADH.
-TSH wnl
#Hypokalemia
-resolved
#Elevated transaminases -possibly related to sepsis. Holding rosuvastatin. Liver looks normal on CT.
#DM2 with hyperglycemia -hemoglobin A1c 7.3%. Hold metformin. Continue Lantus/NovoLog insulin in the hospital. No need to discharge on insulin.
#Essential hypertension
-home losartan
#Rheumatoid arthritis -not on immunosuppression or anti-inflammatory meds.
#Generalized anxiety disorder -continue as needed diazepam.
#Alcohol use disorder -patient states last drink was 1-1/2 weeks ago. Was drinking 12 pack of beer daily. He states he wants to quit altogether. Low risk for alcohol withdrawal at this point in time.
Full code
DVt ppx Lovenox
Anticipated Discharge: 24 - 48 hours
Subjective/Interval History
-
Date of Service: May 08, 2025
Patient was seen and examined at bedside this morning. Feeling well after starting on regular diet and moving his bowels.
Objective Data
-
Labs:
Laboratory Results
05/08/25 05/08/25
08:17 13:18
WBC 11.3 H 12.2 H
Hgb 8.2 L 8.7 L
Hct 26.1 L 27.7 L
Plt Count 767 H D 869 H
Sodium 131 L
Potassium 4.2
Chloride 103
Carbon Dioxide 26
BUN 9
Creatinine 0.6 L
Glucose 181 H
Calcium 9.0
Vital Signs:
Vital Signs
Temp Pulse Resp BP Pulse Ox
99.0 F 76 16 144/87 97
05/08/25 12:40 05/08/25 08:00 05/08/25 07:57 05/08/25 08:00 05/08/25 07:57
I&O
05/07/25 05/08/25 05/09/25
06:59 06:59 06:59
Intake Total 1360 / 1360 960 / 960 360 / 360
Output Total 1989 2350 / 2350 1325 / 1325
Balance -630 / -630 -1390 / -1390 -965 / -965
Review of Systems
-
History Source: Patient
All other systems: Reviewed and negative
Physical Exam
-
General: No Apparent Distress
[2025-05-08 15:04] LABS: C-Reactive Protein 45.80 mg/L (0.0-10.00)
[2025-05-08 15:06] VITALS: BP 141/81
--- NOTE | 2025-05-08 15:36 | W.DCSUMMARY ---
Discharge Summary
Discharge Data
Date of Admission: 05/01/25
Date of Discharge: 05/08/25
-
Pending Results: No
Hospital Course
Mr. Rosenthal is a 64-year-old male with a medical history of obl-yersqej-[id number] diabetes mellitus, rheumatoid arthritis, and hypertension who presented with abdominal pain. He was found have an abscess on his ascending colon with free
intraperitoneal gas. He was brought to the OR on 05/02/2025 for exploratory laparotomy, right hemicolectomy, sigmoidectomy, intra-abdominal washout, and umbilical and ventral hernia repair. He tolerated the procedure well. RYDER drain was left in
place and later removed on 05/07. His diet was able to be advanced to solids on 05/07 which he tolerated well with adequate bowel movements. He had some perioperative blood loss requiring transfusion of a total of 3 units PRBCs, after which his
hemoglobin has remained stable. He was mildly hyponatremic with a serum sodium that remained stable around 131. His home rosuvastatin was held due to elevated transaminases which were downtrending. His liver looked normal on CT scan. He was
encouraged to abstain from alcohol and he should hold his home cholesterol medication for now. He will need repeat labs in 1 to 2 weeks to monitor liver function and serum sodium level. He should follow-up with his primary care physician regarding
appropriate timing of restarting his cholesterol medication. He will need to follow-up closely with colorectal surgery in their office. He has been advised to call the colorectal surgery office if he has worsening abdominal pain or abnormal
drainage from his surgical incision. He will need to keep his surgical incision clean and dry.
Discharge Plan
-
Patient Disposition: Home (Routine Discharge)
Discharge Diagnosis/Procedures: Colon perforation
Diet: Regular and Diabetic, Carb Controlled
Activity: No strenuous activity
Additional Activity: Do not lift over 10lbs (gallon of milk)
Driving Restrictions: Wait until comfortable twisting/off narcotics
Bathing Restrictions: OK to Shower
Wound Care: cover the site where your drain was located as well as your incisions with clean gauze dressing. change daily and as needed for drainage. once drainage no longer present ok to leave dressing off/wound open to air
Referrals:
Satnam Gaviria DO [Family Provider, Family Practice]
Ish Kenny MD [Active, ColoRectal] - in two to four weeks
Prescriptions:
New
pantoprazole 40 mg Tablet,Delayed Release (Dr/Ec)
40 mg PO DAILY 30 Days Qty: 30 0RF
amoxicillin-pot clavulanate 875-125 mg tablet
1 tab PO BID 7 Days Qty: 14 0RF
Continued
duloxetine 60 mg Capsule, Delayed Rel Sprinkle
60 mg PO DAILY
losartan 50 mg Tablet
50 mg PO DAILY
rosuvastatin 40 mg Tablet
40 mg PO DAILY
atenolol 25 mg Tablet
25 mg HS
gabapentin 300 mg Capsule
300 mg PO TID
metformin 500 mg Tablet
500 mg PO DAILY
fenofibrate nanocrystallized [Tricor] 145 mg Tablet
145 mg PO DAILY
icosapent ethyl [Vascepa] 1 gram Capsule
1 g PO BID
cholecalciferol (vitamin D3) [Vitamin D3] 25 mcg (1,000 unit) Tablet,Chewable
25 mcg PO DAILY
oxycodone-acetaminophen [Percocet] 10-325 mg Tablet
1 tab PO QID PRN (Reason: pain)
Discharge Orders:
Discharge Patient (As Directed); Ordered 05/08/25
Ordered By: Grady Yoon
Discharge Date and Time
Print Language: ICELANDIC
--- NOTE | 2025-05-08 16:22 | CM ---
F/U: Patient is discharging and has no discharge needs. PLAN: Home No Needs
--- NOTE | 2025-05-18 11:18 | PN.CDI ---
CDI
- -
CDI:
Physician Documentation Request
Admit Date: 05/01/25 21:20
Dear Doctor Karrie,
Please review the following and provide your response in the progress notes.
Clinical Indicators:
The diagnosis of Acute Peritonitis was included in the signed path report on 05/04/25
Pt admitted with Sepsis due to perforated colon/abscess.
Path report from 05/02 Surgical specimen included:
� Segment of right colon with pericolonic abscess formation and acute peritonitis.
� Segment of terminal ileum with acute peritonitis.
� Segment of colon with diverticulosis with perforation and acute periotonitis.
� Portion of omentum with adherent purulent exudate.
Please indicate in your progress notes if you are in agreement that the above diagnosis is valid for this patient:
____ - Acute Peritonitis is a valid diagnosis (Please include it in your progress notes)
____ - Acute Peritonitis is not a valid diagnosis for this patient
____ - Other
Use of terms such as suspected, likely, concern for, or probable are acceptable for a diagnosis that is being evaluated, monitored or treated as if it exists and can be coded in the inpatient setting, when documented at the time of discharge.
Thank you,
Swapna Garcia RN, BSN
CDI Specialist
[place] [facility]
Please use your independent medical judgment in providing your response.
--- NOTE | 2025-05-18 11:58 | PN.CDI ---
CDI
- -
CDI:
Physician Documentation Request
Admit Date: 05/01/25 21:20
Dear Doctor Efraín,
Please review the following and provide your response in the progress notes.
Clinical Indicators:
The diagnosis of Acute Peritonitis was included in the signed path report on 05/04/25
Pt admitted with Sepsis due to perforated colon/abscess.
Path report from 05/02 Surgical specimen included:
� Segment of right colon with pericolonic abscess formation and acute peritonitis.
� Segment of terminal ileum with acute peritonitis.
� Segment of colon with diverticulosis with perforation and acute periotonitis.
� Portion of omentum with adherent purulent exudate.
05/02 Post-op Note: 'there was purulent exudate within the sigmoid colon and perforation was visualized;'
Please indicate in your progress notes if you are in agreement that the above diagnosis is valid for this patient:
____ - Acute Peritonitis is a valid diagnosis (Please include it in your progress notes)
____ - Acute Peritonitis is not a valid diagnosis for this patient
____ - Other
Use of terms such as suspected, likely, concern for, or probable are acceptable for a diagnosis that is being evaluated, monitored or treated as if it exists and can be coded in the inpatient setting, when documented at the time of discharge.
Thank you,
Swapna Garcia RN, BSN
CDI Specialist
[place] [facility]
Please use your independent medical judgment in providing your response.
== END 2025-05-08 17:06 | disposition home or self-care (01) | DRG 853 ==
LOC: IMU 21:20
PROVIDERS: Hospitalist; Physician Assistant; Registered Nurse; ADMITTING PHYSICIAN Internal Medicine; ATTENDING PHYSICIAN Internal Medicine; CONSULT PHYSICIAN Surgery; EMERGENCY PHYSICIAN Emergency Medicine; FAMILY PHYSICIAN Family Medicine
PROC: 0W9G0ZZ Drainage of Peritoneal Cavity, Open Approach (ICD-10-PCS; 2025-05-02)
PROC: 0DNK0ZZ Release Ascending Colon, Open Approach (ICD-10-PCS; 2025-05-02)
PROC: 0DTN0ZZ Resection of Sigmoid Colon, Open Approach (ICD-10-PCS; 2025-05-02)
PROC: 0DJD8ZZ Inspection of Lower Intestinal Tract, Via Natural or Artificial Opening Endoscopic (ICD-10-PCS; 2025-05-02)
PROC: 3E0M05Z Introduction of Adhesion Barrier into Peritoneal Cavity, Open Approach (ICD-10-PCS; 2025-05-02)
PROC: 0DTF0ZZ Resection of Right Large Intestine, Open Approach (ICD-10-PCS; 2025-05-02)
PROC: 0WQF0ZZ Repair Abdominal Wall, Open Approach (ICD-10-PCS; 2025-05-02)
PROC: 30233N1 Transfusion of Nonautologous Red Blood Cells into Peripheral Vein, Percutaneous Approach (ICD-10-PCS; 2025-05-03)
DX: A41.9 Sepsis, unspecified organism (principal); K65.0 Generalized (acute) peritonitis; K65.1 Peritoneal abscess; K57.20 Diverticulitis of large intestine with perforation and abscess without bleeding; K42.0 Umbilical hernia with obstruction, without gangrene; K43.6 Other and unspecified ventral hernia with obstruction, without gangrene; E87.1 Hypo-osmolality and hyponatremia; D62 Acute posthemorrhagic anemia; K91.840 Postprocedural hemorrhage of a digestive system organ or structure following a digestive system procedure; E78.00 Pure hypercholesterolemia, unspecified; K52.9 Noninfective gastroenteritis and colitis, unspecified; D72.829 Elevated white blood cell count, unspecified; I10 Essential (primary) hypertension; E11.65 Type 2 diabetes mellitus with hyperglycemia; K66.0 Peritoneal adhesions (postprocedural) (postinfection); G89.29 Other chronic pain; R74.01 Elevation of levels of liver transaminase levels; F41.1 Generalized anxiety disorder; M06.9 Rheumatoid arthritis, unspecified; E87.6 Hypokalemia; F10.10 Alcohol abuse, uncomplicated; E53.8 Deficiency of other specified B group vitamins; Y83.8 Other surgical procedures as the cause of abnormal reaction of the patient, or of later complication, without mention of misadventure at the time of the procedure; Z79.899 Other long term (current) drug therapy; Z79.84 Long term (current) use of oral hypoglycemic drugs
CPT/HCPCS: 74174; 74177; 80048; 80053; 80076; 82607; 82728; 82746; 82962; 83036; 83540; 83550; 83690; 83735; 83930; 83935; 84300; 84443; 85014; 85018; 85025; 85027; 85045; 85610; 85730; 86140; 86850; 86900; 86901; 86920; 87070; 87075; 87076; 87077; 87186; 87205; 88304; 88307; 96361; 96365; 96375; 97162; 97166; 97530; 99284; C1776; P9016; Q9967